=== PATIENT | female | born 1930 | race Caucasian/White ===

== ENCOUNTER 2016-12-30 01:05 | Inpatient (IN) | payer MEDICARE, OTHER ==
[~2016-12-30] VITALS: Ht 157.5 cm; Wt 72.9 kg
[2016-12-30] VITALS (14 sets, daily range): BP systolic 100–140; BP diastolic 56–80; PULSE 68–111; RESP 15–81; TEMP 98.3; Ht 157.5 cm; Wt 72.9 kg
[2016-12-30] MEDS ORDERED: SOD CHLORIDE 0.9% 1,000 ML IV STA (01:15)
[2016-12-30 01:26] LABS: BASOPHILS % 0.1 % (0.0-2.0); EOSINOPHILS # 0.1 10^3/ul (0.0-0.5); EOSINOPHILS % 1.1 % (0.0-7.0); HEMATOCRIT 33.1 % (37.0-47.0); HEMOGLOBIN 10.6 g/dl (12.0-16.0); LYMPHOCYTES # 1.2 10^3/ul (0.8-2.9); LYMPHOCYTES % 13.3 % (15.0-51.0); MEAN CORPUSCULAR HEMOGLOBIN 29.4 pg (29.0-33.0); MEAN CORPUSCULAR VOLUME 91.9 fl (82.0-101.0); MEAN PLATELET VOLUME 10.6 fl (7.4-10.4); MONOCYTE # 0.8 10^3/ul (0.3-0.9); MONOCYTES % 8.8 % (0.0-11.0); NEUTROPHILS % 75.8 % (39.0-77.0); PLATELET COUNT 162 10^3/UL (140-415); RED CELL DISTRIBUTION WIDTH 14.6 % (11.5-14.5)
[2016-12-30] MEDS ORDERED: AMIODARONE 150MG/D5W BOLUS 100 ML IV ONE (01:30)
[2016-12-30] MEDS ORDERED: AMIODARONE 900 MG in DEXTROSE 5% 482 ML IV SCH (01:30)
[2016-12-30 01:58] LABS: INR 0.95; PARTIAL THROMBOPLASTIN TIME 25.7 Sec (25.0-35.0); PROTIME 12.7 Sec (12.2-14.2)
[2016-12-30 02:03] LABS: ALBUMIN/GLOBULIN RATIO 1.11; BILIRUBIN,INDIRECT 0.8 mg/dl (0-1.1); BILIRUBIN,TOTAL 0.8 mg/dl (0.2-1.3); CALCIUM 8.4 mg/dl (8.4-10.2); CREATININE 0.73 mg/dl (0.44-1.00); POTASSIUM 4.1 mmol/L (3.5-5.1); TOTAL PROTEIN 5.7 g/dl (6.1-8.1)
[2016-12-30 02:27] LABS: TROPONIN-I 0.292 ng/ml (0.00-0.12)
--- NOTE | 2016-12-30 02:47 | RADRPT ---
PROCEDURE: XR Chest. CLINICAL INDICATION: Chest pain TECHNIQUE: AP Portable chest. COMPARISON: No pertinent prior examinations were submitted for comparison. FINDINGS: There is marked cardiomegaly. There is moderate pulmonary vascular congestion with some hazy opacit ies in the right greater than left lung bases. The osseous structures are unremarkable. IMPRESSION: Moderate pulmonary vascular congestion and basilar opacities likely due to pleural effusions and ate lectasis. RPTAT: HIKT .Hari Nava MD, MD Date Time Electronically viewed and signed by .Hari Nava MD, MD on 12/30/2016 02:46 .T/
--- NOTE | 2016-12-30 03:23 | ERA ---
ER Documentation Chief Complaint Date/Time DATE: 12/30/16 TIME: 03:20 Chief Complaint Per EMS pt c/o CP since noon, EMS gave 2 nitro sprays resolved cp HPI This is an 86 year female brought in by EMS with complaint of chest pain on and off since noon. Patient was recently admitted to [facility] for similar complaints and spent 8 days in a intermediate facility. Patient's chest pain is since resolved since getting 2 sprays of nitro and aspirin on route to the ER. No chest pain currently. No nausea no vomiting no fevers no chills. No diaphoresis. ROS All systems reviewed and are negative except as per history of present illness. Allergies Allergies: Coded Allergies: No Known Allergy (Unverified , 12/30/16) PMhx/Soc Hx Cardiac Disorders: Yes (NSTEMI, CHF, AFIB, Cardiomyopathy) Hx Psychiatric Problems: Yes (Depression) Hx Alcohol Use: No Hx Substance Use: No Hx Tobacco Use: No Smoking Status: Never smoker Physical Exam Vitals Vital Signs Date Time Temp Pulse Resp B/P Pulse Ox O2 Delivery O2 Flow Rate FiO2 12/30/16 03:09 98.3 72 18 116/69 98 Nasal Cannula 2.0 12/30/16 01:24 Nasal Cannula 2 12/30/16 01:11 98.6 124 16 132/86 97 Physical Exam Const: [] Head: Atraumatic Eyes: Normal Conjunctiva ENT: Normal External Ears, Nose and Mouth. Neck: Full range of motion..~ No meningismus. Resp: Clear to auscultation bilaterally Cardio: Regular rate and rhythm, no murmurs Abd: Soft, non tender, non distended. Normal bowel sounds Skin: No petechiae or rashes Back: No midline or flank tenderness Ext: No cyanosis, or edema Neur: Awake and alert Psych: Normal Mood and Affect Result Diagram: 12/30/16 0110 12/30/16 0110 Results 24 hrs Laboratory Tests Test 12/30/16 01:10 White Blood Count 9.010^3/ul Red Blood Count 3.6010^6/ul Hemoglobin 10.6g/dl Hematocrit 33.1% Mean Corpuscular Volume 91.9fl Mean Corpuscular Hemoglobin 29.4pg Mean Corpuscular Hemoglobin Concent 32.0g/dl Red Cell Distribution Width 14.6% Platelet Count 12874^3/UL Mean Platelet Volume 10.6fl Neutrophils % 75.8% Lymphocytes % 13.3% Monocytes % 8.8% Eosinophils % 1.1% Basophils % 0.1% Nucleated Red Blood Cells % 0.0/100WBC Neutrophils # (Manual) 6.910^3/ul Lymphocytes # 1.210^3/ul Monocytes # 0.810^3/ul Eosinophils # 0.110^3/ul Basophils # 0.010^3/ul Nucleated Red Blood Cells # 0.010^3/ul Prothrombin Time 12.7Sec Prothrombin Time Ratio 1.0 INR International Normalized Ratio 0.95 Activated Partial Thromboplast Time 25.7Sec Sodium Level 131mmol/L Potassium Level 4.1mmol/L Chloride Level 99mmol/L Carbon Dioxide Level 27mmol/L Anion Gap 9 Blood Urea Nitrogen 21mg/dl Creatinine 0.73mg/dl Glucose Level 123mg/dl Calcium Level 8.4mg/dl Total Bilirubin 0.8mg/dl Direct Bilirubin 0.00mg/dl Indirect Bilirubin 0.8mg/dl Aspartate Amino Transf (AST/SGOT) 35IU/L Alanine Aminotransferase (ALT/SGPT) 47IU/L Alkaline Phosphatase 70IU/L Troponin I 0.292ng/ml B-Type Natriuretic Peptide 4520PG/ML Total Protein 5.7g/dl Albumin 3.0g/dl Globulin 2.70g/dl Albumin/Globulin Ratio 1.11 Lipase 335U/L Current Medications Medications (Trade) Dose Ordered Sig/Vale Route PRN Reason Start Time Stop Time Status Last Admin Dose Admin Sodium Chloride 1,000 ml @ 1,000 mls/hr Q1H STAT IV 12/30/16 01:15 12/30/16 02:31 DC 12/30/16 01:37 Amiodarone HCl 100 ml @ 600 mls/hr ONCE ONCE IV 12/30/16 01:30 12/30/16 01:39 DC 12/30/16 01:36 Amiodarone HCl/ Dextrose (Cordarone Iv/ D5W) 500 ml @ 0 mls/hr Q0M IV 12/30/16 01:30 12/31/16 01:29 Procedures/MDM EKG: Rate/Rhythm: widecomplex tachycardia with variable conduction QRS, ST, T-waves: [No changes consistent w/ acute ischemia] Impression: [No evidence of ischemia or arrhythmia] At this point patient was treated as a wide-complex tachycardia and started on amiodarone infusion EKG: Rate/Rhythm: [Normal Sinus Rhythm] QRS, ST, T-waves: [No changes consistent w/ acute ischemia] Impression: [No evidence of ischemia or arrhythmia] Chest X-ray 1V Interpreted by me: Soft Tissue: No acute abnormalities Bones: No acute abnormalities Mediastinum/Cardiac Silhouette/Lungs: [No acute abnormalities] Critical Care: Time: 45 minutes Treatments/Evaluations: Close monitoring and treatment of unstable vital signs, cardiorespiratory, and neurologic status, while maintaining tight balance of fluid, respiratory, and cardiac interventions. Patient's symptoms are concerning for cardiac cause will require inpatient workup and continuous monitoring. Further w/u for ischemia, arrhythmia, PE or dissection will be deferred to the inpatient team. Accepting Care Team: Current data and ongoing care discussed. Time: 3:30 AM primary Provider: Hospitalist consulting: [XOXOXO] Outstanding Data: none Departure Diagnosis: Primary Impression: Chest pain Qualified Code: R07.9 - Chest pain, unspecified type Condition: Critical LUBNA YAN Dec 30, 2016 03:23
[2016-12-30] MEDS ORDERED: LORAZEPAM 2 MG INJ IV ONE (04:00)
[2016-12-30] MEDS ORDERED: morphine 2 MG INJ IV PRN (07:00)
[2016-12-30] MEDS ORDERED: ONDANSETRON 4 MG INJ IV PRN (07:00)
[2016-12-30] MEDS ORDERED: ACETAMINOPHEN 325 MG TAB PO PRN (07:00)
[2016-12-30] MEDS ORDERED: ATOR10TA65 PO (07:04)
[2016-12-30] MEDS ORDERED: MAGN400O4 PO (07:04)
[2016-12-30] MEDS ORDERED: ASPI325T4 PO (07:04)
[2016-12-30] MEDS ORDERED: BISA10SU75 PR (07:04)
--- NOTE | 2016-12-30 07:04 | HP ---
Date/Time of Note Date/Time of Note DATE: 12/30/16 TIME: 06:45 Assessment/Plan VTE Prophylaxis VTE Prophylaxis Intervention: heparin Lines/Catheters IV [facility]ter [facility]from [facility] Saline Lock Assessment/Plan Assessment/Plan Assessment 86-year-old female with a history of hypertension, A-fib, cardiomyopathy, CHF, GERD, NSTEMI and a probable dementia or CVA who was sent from SNF for chest pain and found to be in rapid A-fib with elevated troponin as well as CHF exacerbation PLAN Continue telemetry monitoring Trend troponin Supplemental oxygen, aspirin, beta-heriberto, statin, as needed nitro and morphine IV Lasix Monitor urine output 2D echo and cardiology consult HPI/ROS Admit Date/Time Admit Date/Time Dec 30, 2016 at 03:13 Hx of Present Illness This is an 86-year-old female with a history of hypertension, and STEMI, A. fib , CHF, GERD, depression who was brought from SNF/rehab for chest pain. Patient reportedly stated that she was having chest pain but on my examination patient is confused and is not oriented. In any case, reportedly she was admitted at an outside hospital for chest pain and sent back to SNF now sent for chest pain. When she presented to the ER she was noted to be in rapid A. fib. First troponin is elevated at 0.292. Chest x-ray shows moderate pulmonary vascular congestion, basilar opacity due to pleural effusion versus atelectasis. Patient has upper extremity bruising. . PMH/Family/Social Social History Smoking Status: Never smoker Exam/Review of Systems Vital Signs Vitals Vital Signs Date Time Temp Pulse Resp B/P Pulse Ox O2 Delivery O2 Flow Rate FiO2 12/30/16 05:15 97.6 81 81 140/80 99 12/30/16 04:16 Nasal Cannula 2.0 Exam Constitutional: other (No acute distress. Patient only mumbles and is not following commands) Head: atraumatic, normocephalic Eyes: PERRL Respiratory: diminished breath sounds Cardiovascular: irregular rhythm Gastrointestinal: soft Extremities: other (Upper extremity bruising) Labs Result Diagram: 12/30/16 0110 12/30/16 0110 Medications Medications Current Medications Amiodarone HCl/ Dextrose (Cordarone Iv/ D5W) 500 ml @ 0 mls/hr Q0M IV ; Start at 01:30; Stop 12/31/16 at 01:29 LUBNA SALMERON MD Dec 30, 2016 06:57
[2016-12-30] MEDS ORDERED: FUROSEMIDE 20 MG INJ IV SCH (09:00)
[2016-12-30] MEDS ORDERED: HEPARIN 5,000 UNIT/0.5 ML VIAL SC SCH (09:00)
[2016-12-30] MEDS: ASPIRIN (EC) 81 MG TAB PO SCH (09:47)
--- NOTE | 2016-12-30 10:21 | RADRPT ---
Echocardiogram Report Patient Name: JOSE BRIAN Gender: Female Date: 1930 Study Date: 30-Dec-2016 Creative Services Designer: Irvin Willson [facility] Location: 521 Ref. Physician: LUBNA SALMERON Quality: Good Procedures: Transthoracic echocardiogram with complete 2D, M-Mode, and doppler examination. Indications: NSTEMI. 2D/M Mode Doppler Measurement Value Normal Ranges Measurement Value Normal Ranges LVIDd 2D 4.8 3.5 - 5.6 cm DORINDA Vmax 1.5 cm2 LVIDs 2D 4.0 2.1 - 4.1 cm AV Peak Oli 1.2 m/sec FS 2D 16.4 % AV Peak PG 6.0 mmHg LVPWd 2D 1.1 0.6 - 1.1 cm AI Peak PG 53.0 mmHg IVSd 2D 1.3 0.6 - 1.1 cm AI Peak Oli 3.7 m/sec IVS/LVPW 2D 1.2 AI PHT 410.0 msec AoR Diam 2D 2.6 2.0 - 3.7 cm LVOT Peak Oli 0.7 m/sec LA/Ao 2D 2 0 - 1 LVOT Peak PG 2.0 mmHg EDV 2D 111.0 cm3 MV E Peak Oli 0.9 m/sec ESV 2D 65.0 cm3 MV Decel Time 151 msec LA Dimen 2D 5.1 2.3 - 4.0 cm TR Peak Oli 4.2 m/sec LVOT Diam 1.8 cm TR Peak PG 71.0 mmHg LVOT Area 2.5 cm2 RVSP 86.0 mmHg Findings Left Ventricle: Normal left ventricular cavity size. Moderate concentric left ventricular hypertrophy. Mild left ventricular systolic dysfunction. Ejection fraction is visually estimated at 40 %. Abnormal Diastolic Function. These segments of the LV are hypokinetic apical septum, inferior apex segment and apex. Right Ventricle: Normal right ventricular size. Normal right ventricular systolic function. Left Atrium: There is severe enlargement of left atrium. Right Atrium: There is severe enlargement of right atrium. Mitral Valve: Mitral valve leaflets appear mildly thickened. Mild mitral annular calcification. Moderate mitral valve regurgitation. Aortic Valve: No hemodynamically significant aortic stenosis by doppler. Aortic cusps appear mildly calcified. Mild aortic valve regurgitation. Tricuspid Valve: Estimated peak PA systolic pressure 86 mmHg. Tricuspid valve appears mildly thickened. There is severe tricuspid regurgitation. Pulmonic Valve: Normal pulmonic valve appearance. There is trace pulmonic regurgitation. Pericardium: Normal pericardium with no significant pericardial effusion. Aorta: Normal aortic root. IVC: Dilated IVC without respiratory collapse consistent with elevated right atrial pressure. Conclusions 1.Normal left ventricular cavity size. Moderate concentric left ventricular hypertrophy. Mild left ventricular systolic dysfunction. Ejection fraction is visually estimated at 40 %. Abnormal Diastolic Function. These segments of the LV are hypokinetic apical septum, inferior apex segment and apex. 2.Estimated peak PA systolic pressure 86 mmHg. Tricuspid valve appears mildly thickened. There is severe tricuspid regurgitation. 3.Mitral valve leaflets appear mildly thickened. Mild mitral annular calcification. Moderate mitral valve regurgitation. Electronically Signed By: Pk Gayle 30-Dec-2016 10:21:10 -0700 Patient Name: JOSE BRIAN Study Date: 30-Dec-2016 [id number]
[2016-12-30] MEDS ORDERED: ISOS30TA5 PO (10:54)
[2016-12-30] MEDS ORDERED: FURO40TA4 PO (10:54)
[2016-12-30] MEDS ORDERED: CARV6.2579 PO (10:54)
[2016-12-30] MEDS ORDERED: LEVA0.634 INHALATION (11:22)
[2016-12-30] MEDS ORDERED: SPIR25TA PO (11:22)
[2016-12-30] MEDS ORDERED: NIT4 SL (11:22)
[2016-12-30] MEDS ORDERED: LATA2.5D2 BOTH EYES (11:22)
[2016-12-30] MEDS ORDERED: SERT25TA83 PO (11:22)
[2016-12-30] MEDS ORDERED: LISI-313 PO (11:22)
[2016-12-30] MEDS ORDERED: PANT40TA4 PO (11:22)
[2016-12-30] MEDS ORDERED: SENN-53 PO (11:22)
[2016-12-30] MEDS ORDERED: IPRATROPIUM NEB (11:34)
--- NOTE | 2016-12-30 11:51 | CONS ---
DATE OF ADMISSION: 12/30/2016 DATE OF CONSULTATION: 12/30/2016 HISTORY OF PRESENT ILLNESS: Miss Hopkins is an 86-year-old woman who presented to [facility] with a complaint of fatigue, shortness of breath and chest pain. By EMS she was found to have atrial fibrillation with rapid ventricular rates. Her rates have been controlled on an amiodarone drip. She reportedly has a history of congestive heart failure and a non ST-elevation GA. She was sent by a alf facility. At this time patient appears alert. She reports that currently she has no chest pain. She also reports that she has had worsening edema for 1 week. PHYSICAL EXAMINATION: GENERAL APPEARANCE: She is comfortable but weak appearing. VITAL SIGNS: Temperature 98, pulse 86, blood pressure 123/70, oxygen saturation 98 percent on 2 L. LUNGS: There is bilateral crackles at the bases. HEART: Soft systolic murmur and irregular rhythm appreciated. ABDOMEN: Soft, nontender. EXTREMITIES: Reveal 2+ edema bilaterally. LABORATORY: Telemetry shows atrial fibrillation with controlled rate. EKG shows atrial fibrillation with a left bundle branch block. Initial troponin 0.92, second troponin 1.6, sodium 131, potassium 4.1. INR 1.0. Hematocrit 33.1. MEDICATION: Subcu heparin, aspirin, Lasix 20 IV daily, morphine and amiodarone drip, carvedilol 3.125 b.i.d. IMPRESSION AND PLAN: Miss Hopkins has atrial fibrillation initially with rapid ventricular rate and associated chest pain. No other hospital visits are available and so I cannot assess whether this is new. She also has congestive heart failure on examination and x-ray, mildly reduced ejection fraction on echocardiogram. At this time I agree with continued diuresis. I will order Lovenox until we ascertain whether she needs to be anticoagulated. She also has a slight elevation in troponin which is likely secondary to heart failure and atrial fibrillation with rapid rates. I will stop the amiodarone at this time. It is not clear whether the atrial fibrillation is new and her rates are controlled. Dr. Phillip will follow tomorrow. Dictated By: Pk Gayle MD /vangie/keagan /Document#: [id number]
--- NOTE | 2016-12-30 12:18 | QN ---
Documentation Comment S: Patient was seen and evaluated this am at bedside. Please see H&P for further details. Since admission this am patient is still c/o SOB but denies any chest pain or dizziness. O: Temp 98, BP 123/70 HR 86 98% on 2 L. PHYSICAL EXAMINATION: GENERAL APPEARANCE: No acute distress but appears weak CVS: irregularly irregular rhythm, systolic murmur LUNGS: Equal air entry. bilateral crackles at the bases no wheezing ABDOMEN: Soft, nontender. EXTREMITIES: 2+ edema LE bilaterally. ECHO 1. Normal left ventricular cavity size. Moderate concentric left ventricular hypertrophy. Mild left ventricular systolic dysfunction. Ejection fraction is visually estimated at 40 %. Abnormal Diastolic Function. These segments of the LV are hypokinetic apical septum, inferior apex segment and apex. 2. Estimated peak PA systolic pressure 86 mmHg. Tricuspid valve appears mildly thickened. There is severe tricuspid regurgitation. 3. Mitral valve leaflets appear mildly thickened. Mild mitral annular calcification. Moderate mitral valve regurgitation. A/P 1. NSTEMI - Cardiology on board and recommendations appreciated - Troponin continues to trend up and currently on Lovenox full dose 2. Afib with RVR - Amiodarone discontinued since currently rate controlled - Lovenox was initiated due to unclear whether afib is new or chronic. 3. 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 - BNP 4520 - ECHO shows EF 40% with severe TR and pulm HTN 4. Pulmonary HTN - if SOB shows no improvement, will consult Pulm for assistance with management HANK WAHL MD Dec 30, 2016 12:18
[2016-12-30] MEDS ORDERED: ENOXAPARIN 100 MG/ML SYG SC SCH (21:00)
[2016-12-30] MEDS: ATORVASTATIN 20 MG TAB PO SCH (21:05)
[2016-12-30] MEDS: LORAZEPAM 0.5 MG TAB PO SCH (21:05)
[2016-12-30] MEDS: LATANOPROST 0.005% 2.5 ML OPH BOTH EYES SCH (21:06)
[2016-12-31] VITALS (11 sets, daily range): BP systolic 96–129; BP diastolic 53–71; PULSE 79–109; RESP 18–19
[2016-12-31 07:48] LABS: EOSINOPHILS # 0.1 10^3/ul (0.0-0.5); EOSINOPHILS % 2.3 % (0.0-7.0); HEMATOCRIT 30.7 % (37.0-47.0); HEMOGLOBIN 9.9 g/dl (12.0-16.0); LYMPHOCYTES # 0.9 10^3/ul (0.8-2.9); LYMPHOCYTES % 15.3 % (15.0-51.0); MEAN CORPUSCULAR HEMOGLOBIN 30.3 pg (29.0-33.0); MEAN CORPUSCULAR HGB CONC 32.2 g/dl (32.0-37.0); MEAN CORPUSCULAR VOLUME 93.9 fl (82.0-101.0); MEAN PLATELET VOLUME 10.2 fl (7.4-10.4); MONOCYTE # 0.8 10^3/ul (0.3-0.9); MONOCYTES % 12.7 % (0.0-11.0); PLATELET COUNT 140 10^3/UL (140-415); RED BLOOD COUNT 3.27 10^6/ul (4.20-5.40); RED CELL DISTRIBUTION WIDTH 14.6 % (11.5-14.5); WHITE BLOOD COUNT 6.1 10^3/ul (4.8-10.8)
[2016-12-31 07:54] LABS: POSITIVE DIFF @See below
[2016-12-31 08:19] LABS: ALBUMIN 2.9 g/dl (3.3-4.9); ALBUMIN/GLOBULIN RATIO 1.16; BILIRUBIN,INDIRECT 0.6 mg/dl (0-1.1); BILIRUBIN,TOTAL 0.6 mg/dl (0.2-1.3); CALCIUM 8.5 mg/dl (8.4-10.2); CHOL/HDL RATIO 2.4 RATIO; CREATININE 0.84 mg/dl (0.44-1.00); POTASSIUM 4.1 mmol/L (3.5-5.1); TOTAL PROTEIN 5.4 g/dl (6.1-8.1)
[2016-12-31 08:36] LABS: THYROID STIMULATING HORMONE 3.33 MIU/L (0.465-4.680)
--- NOTE | 2016-12-31 08:55 | CONS ---
Date/Time of Note Date/Time of Note DATE: 12/31/16 TIME: 08:48 Consult Date/Type/Reason Admit Date/Time Dec 30, 2016 at 03:13 Initial Consult Date Type of Consultation: CARDIOLOGY Subjective CARDIOLOGY F/U NOTE: D/W STAFF and son over the phone. rhythm was reviewed. pt remains in Afib. HR has been mostly elevated. according to son pt has chronic Afib and is on pradaxa at home. she denies any cp or pressure to me. she has sob. no bleeding. OBJECTIVE: Gen: elderly female in mild resp distress HEENT: NC. AT. Pupils are equal and round Neck no stridor. + JVD CV irregularly irregular. systolic murmur. pulm+ + rhonchi at base. GI obese soft NT ND. NO REBOUND or guarding EXT: + B/L LE edema. neuro: awake and alert. Ox2 Psych calm and pleasant. Derm no active bleeding ECHO: Conclusions 1. Normal left ventricular cavity size. Moderate concentric left ventricular hypertrophy. Mild left ventricular systolic dysfunction. Ejection fraction is visually estimated at 40 %. Abnormal Diastolic Function. These segments of the LV are hypokinetic apical septum, inferior apex segment and apex. 2. Estimated peak PA systolic pressure 86 mmHg. Tricuspid valve appears mildly thickened. There is severe tricuspid regurgitation. 3. Mitral valve leaflets appear mildly thickened. Mild mitral annular calcification. Moderate mitral valve regurgitation. Electronically Signed By: Pk Gayle 30-Dec-2016 10:21:10 -0700 Objective Vital Signs Date Time Temp Pulse Resp B/P Pulse Ox O2 Delivery O2 Flow Rate FiO2 12/31/16 08:10 109 12/31/16 07:01 98.0 18 129/65 98 12/30/16 21:39 2.0 12/30/16 04:40 Room Air Intake and Output 12/30/16 12/30/16 12/31/16 15:00 23:00 07:00 Intake Total 600 ml Output Total 600 ml Balance 0 ml Results/Medications Result Diagram: 12/31/16 0712/31/16718 Results 24 hrs Laboratory Tests Test 12/30/16 14:19 12/31/16 07:19 Troponin I 2.550 *H White Blood Count 6.1 # Red Blood Count 3.27 L Hemoglobin 9.9 L Hematocrit 30.7 L Mean Corpuscular Volume 93.9 Mean Corpuscular Hemoglobin 30.3 Mean Corpuscular Hemoglobin Concent 32.2 Red Cell Distribution Width 14.6 H Platelet Count 140 Mean Platelet Volume 10.2 Neutrophils % 69.0 Lymphocytes % 15.3 Monocytes % 12.7 H Eosinophils % 2.3 Basophils % 0.0 Nucleated Red Blood Cells % 0.0 Neutrophils # (Manual) 4.2 Lymphocytes # 0.9 Monocytes # 0.8 Eosinophils # 0.1 Basophils # 0.0 Nucleated Red Blood Cells # 0.0 Sodium Level 132 L Potassium Level 4.1 Chloride Level 99 Carbon Dioxide Level 32 H Anion Gap 5 L Blood Urea Nitrogen 20 Creatinine 0.84 Glucose Level 89 Hemoglobin A1c 6.4 H Calcium Level 8.5 Total Bilirubin 0.6 Direct Bilirubin 0.00 Indirect Bilirubin 0.6 Aspartate Amino Transf (AST/SGOT) 41 Alanine Aminotransferase (ALT/SGPT) 53 Alkaline Phosphatase 68 Total Protein 5.4 L Albumin 2.9 L Globulin 2.50 Albumin/Globulin Ratio 1.16 Triglycerides Level 51 Cholesterol Level 120 LDL Cholesterol, Calculated 60 HDL Cholesterol 50 Cholesterol/HDL Ratio 2.4 Thyroid Stimulating Hormone (TSH) 3.330 Medications Current Medications Ondansetron HCl (Zofran Inj) 4 mg Q6H PRN IV NAUSEA AND/OR VOMITING; Start 12/30 at 07:00 Acetaminophen (Tylenol Tab) 650 mg Q6H PRN PO PAIN AND OR ELEVATED TEMP; Start 12/30/16 at 07:00 Morphine Sulfate (morphine) 2 mg Q4H PRN IV PAIN; Start 12/30/16 at 07:00 Carvedilol (Coreg) 3.125 mg BID PO Last administered on 12/30/16 21:05; Admin Dose 3.125 MG; Start 12/30/16 at 09:00 Aspirin (Halfprin) 81 mg DAILY PO Last administered on 12/30/16 09:47; Admin Dose 81 MG; Start 12/30/16 at 09:00 Atorvastatin Calcium (Lipitor) 20 mg HS PO Last administered on 12/30/16 21:05 ; Admin Dose 20 MG; Start 12/30/16 at 21:00 Furosemide (Lasix) 40 mg DAILY IV ; Start 12/31/16 at 09:00 Lorazepam (Ativan) 0.5 mg HS PO Last administered on 9/4/17at 21:05; Admin Dose 0.5 MG; Start 12/30/16 at 21:00 Latanoprost (Xalatan) 1 drop QHS BOTH EYES Last administered on 12/30/16t 21:06 ; Admin Dose 1 DROP; Start 12/30/16 at 21:00 Digoxin (Digoxin) 250 mcg ONCE ONCE IV ; Start 12/31/16 at 09:00; Stop 12/31/16 at 09:01 Losartan Potassium (Cozaar) 25 mg DAILY PO ; Start 12/31/16 at 09:00; Status UNV Spironolactone (Aldactone) 25 mg DAILY PO ; Start 12/31/16 at 09:00; Status UNV Apixaban (Eliquis) 5 mg BID PO ; Start 12/31/16 at 09:00; Status UNV Assessment/Plan Chief Complaint/Hosp Course 1. NSTEMI 2. AFIB: chronic now with RVR 3. HX severe CAD per son: per pt and son report 4 years ago she was told she has severe CAD, and CABG was recommended, she has refused and now continues to refuse. she does not even want gibran angio or PCI as d/w pt and son. 4. HTN 5. CHF: acute on chronic due to systolic and diastolic heart failure 6. anemia 7. dyslipidemia 8. CKD 9 Memory impairment 10. HYPO Na. REC: anticoagulation with eliquis cont coreg add losartan add aldactone IV lasix and adjust strict I/I AND Fall precautions. medical therapy only since she is refusing any intervention. f/u trop level. CHECK LIPID PANEL. STATINS. THANK YOU. NILDA HUNT MD [facility] Problems: NILDA HUNT MD Dec 31, 2016 08:55
[2016-12-31] MEDS ORDERED: DIGOXIN 500 MCG INJ IV ONE (09:00)
[2016-12-31 09:26] LABS: CK-MB 2.66 ng/ml (0.0-2.4); TROPONIN-I 0.995 ng/ml (0.00-0.12)
[2016-12-31] MEDS: LOSARTAN 25 MG TAB PO SCH (10:17)
[2016-12-31] MEDS: APIXABAN 5 MG TABLET PO SCH ×2 (10:18→21:17)
[2016-12-31] MEDS: ASPIRIN (EC) 81 MG TAB PO SCH (10:18)
[2016-12-31] MEDS: SPIRONOLACTONE 25 MG TAB PO SCH (10:18)
[2016-12-31] MEDS: FUROSEMIDE 20 MG INJ IV SCH (10:19)
--- NOTE | 2016-12-31 17:17 | PN ---
Date/Time of Note Date/Time of Note DATE: 12/31/16 TIME: 17:04 Assessment/Plan VTE Prophylaxis VTE Prophylaxis Intervention: other Lines/Catheters IV Catheter Type (from Nrs): Saline Lock Urinary Cath still in place: No Assessment/Plan Assessment/Plan 1. NSTEMI - Cardiology on board and recommendations appreciated. - Discussed with patient what Dr. Phillip discovered from son this am. Patient still adamant about not having surgery and kept stating "God has a plan for her... no surgery" - Will continue medical management at this time - Currently asymptomatic - Troponins trending downward 2. AFIB: chronic now with RVR - Currently rate controlled - On Eliquis, will need to monitor ecchymosis on left arm since on blood thinner 3. HX severe CAD per son - per pt and son report 4 years ago she was told she has severe CAD, and CABG was recommended. She continues to refuse surgical intervention. - Started on losartan and aldactone today and will monitor response to medication for another 24-48 hours before discharge 4. HTN - stable. continue current regimen 5. 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 anemia - stable 7. dyslipidemia - continue on statin 8. Hyponatremia. - will continue to monitor since on diuretics - no neurological symptoms appreciated 9. Prediabetes - A1c 6.4 Subjective 24 Hr Interval Summary Free Text/Dictation Patient seen and examined at bedside. States she is feeling better and no longer experiencing chest discomfort. Shortness of breath is improving but she is concerned about the bruising on her left arm and swelling of her legs. Denies any dizziness, fevers, nausea, vomiting, abdominal issues, palpitations, or LOC. Exam/Review of Systems Vital Signs Vitals Vital Signs Date Time Temp Pulse Resp B/P Pulse Ox O2 Delivery O2 Flow Rate FiO2 12/31/16 16:22 82 12/31/16 11:37 98.0 18 127/68 98 12/31/16 08:30 2.0 12/30/16 04:40 Room Air Intake and Output 12/30/16 12/30/16 12/31/16 15:00 23:00 07:00 Intake Total 600 ml Output Total 600 ml Balance 0 ml Exam General: elderly female, awake and alert HEENT: NC/AT. Pupils are equal and round Neck: no bruits. + JVD CV: irregularly irregular. systolic murmur. Pulm: crackles at bases. equal chest rise GI: Obese, soft NT ND. No rebound or guarding EXT: + B/L LE edema. neuro: awake and alert. Ox2 Psych calm and pleasant. Derm- swelling left UE with ecchymosis. pulses intact Results Result Diagram: 12/31/16 0712/31/16718 Results 24 hrs Laboratory Tests Test 12/31/16 07:16 12/31/16 07:19 Creatine Kinase 50 Creatine Kinase Index 5.3 Creatinine Kinase MB (Mass) 2.66 H Troponin I 0.995 *H White Blood Count 6.1 # Red Blood Count 3.27 L Hemoglobin 9.9 L Hematocrit 30.7 L Mean Corpuscular Volume 93.9 Mean Corpuscular Hemoglobin 30.3 Mean Corpuscular Hemoglobin Concent 32.2 Red Cell Distribution Width 14.6 H Platelet Count 140 Mean Platelet Volume 10.2 Neutrophils % 69.0 Lymphocytes % 15.3 Monocytes % 12.7 H Eosinophils % 2.3 Basophils % 0.0 Nucleated Red Blood Cells % 0.0 Neutrophils # (Manual) 4.2 Lymphocytes # 0.9 Monocytes # 0.8 Eosinophils # 0.1 Basophils # 0.0 Nucleated Red Blood Cells # 0.0 Sodium Level 132 L Potassium Level 4.1 Chloride Level 99 Carbon Dioxide Level 32 H Anion Gap 5 L Blood Urea Nitrogen 20 Creatinine 0.84 Glucose Level 89 Hemoglobin A1c 6.4 H Calcium Level 8.5 Total Bilirubin 0.6 Direct Bilirubin 0.00 Indirect Bilirubin 0.6 Aspartate Amino Transf (AST/SGOT) 41 Alanine Aminotransferase (ALT/SGPT) 53 Alkaline Phosphatase 68 Total Protein 5.4 L Albumin 2.9 L Globulin 2.50 Albumin/Globulin Ratio 1.16 Triglycerides Level 51 Cholesterol Level 120 LDL Cholesterol, Calculated 60 HDL Cholesterol 50 Cholesterol/HDL Ratio 2.4 Thyroid Stimulating Hormone (TSH) 3.330 Medications Medications Current Medications Ondansetron HCl (Zofran Inj) 4 mg Q6H PRN IV NAUSEA AND/OR VOMITING; Start 12/30 at 07:00 Acetaminophen (Tylenol Tab) 650 mg Q6H PRN PO PAIN AND OR ELEVATED TEMP; Start 12/30/16 at 07:00 Morphine Sulfate (morphine) 2 mg Q4H PRN IV PAIN; Start 12/30/16 at 07:00 Carvedilol (Coreg) 3.125 mg BID PO Last administered on 12/31/16 10:17; Admin Dose 3.125 MG; Start 12/30/16 at 09:00 Aspirin (Halfprin) 81 mg DAILY PO Last administered on 12/31/16 10:18; Admin Dose 81 MG; Start 12/30/16 at 09:00 Atorvastatin Calcium (Lipitor) 20 mg HS PO Last administered on 12/30/16 21:05 ; Admin Dose 20 MG; Start 12/30/16 at 21:00 Furosemide (Lasix) 40 mg DAILY IV Last administered on 12/31/16 10:19; Admin Dose 40 MG; Start 12/31/16 at 09:00 Lorazepam (Ativan) 0.5 mg HS PO Last administered on 12/30/16 21:05; Admin Dose 0.5 MG; Start 12/30/16 at 21:00 Latanoprost (Xalatan) 1 drop QHS BOTH EYES Last administered on 12/30/16 21:06 ; Admin Dose 1 DROP; Start 12/30/16 at 21:00 Losartan Potassium (Cozaar) 25 mg DAILY PO Last administered on 12/31/16 10:17 ; Admin Dose 25 MG; Start 12/31/16 at 09:00 Spironolactone (Aldactone) 25 mg DAILY PO Last administered on 12/31/16 10:18; Admin Dose 25 MG; Start 12/31/16 at 09:00 Apixaban (Eliquis) 5 mg BID PO Last administered on 12/31/16 10:18; Admin Dose 5 MG; Start 12/31/16 at 09:00 HANK WAHL MD Dec 31, 2016 17:16
[2016-12-31] MEDS: LATANOPROST 0.005% 2.5 ML OPH BOTH EYES SCH (21:16)
[2016-12-31] MEDS: LORAZEPAM 0.5 MG TAB PO SCH (21:16)
[2016-12-31] MEDS: ATORVASTATIN 20 MG TAB PO SCH (21:17)
[2017-01-01] VITALS (12 sets, daily range): BP systolic 100–120; BP diastolic 56–72; PULSE 71–83; RESP 17–19
[2017-01-01 07:45] LABS: BASOPHILS % 0.2 % (0.0-2.0); EOSINOPHILS # 0.1 10^3/ul (0.0-0.5); EOSINOPHILS % 2.3 % (0.0-7.0); HEMATOCRIT 31.7 % (37.0-47.0); HEMOGLOBIN 9.7 g/dl (12.0-16.0); LYMPHOCYTES # 0.9 10^3/ul (0.8-2.9); LYMPHOCYTES % 17.8 % (15.0-51.0); MEAN CORPUSCULAR HGB CONC 30.6 g/dl (32.0-37.0); MEAN CORPUSCULAR VOLUME 94.9 fl (82.0-101.0); MEAN PLATELET VOLUME 10.3 fl (7.4-10.4); MONOCYTE # 0.5 10^3/ul (0.3-0.9); MONOCYTES % 10.5 % (0.0-11.0); NEUTROPHILS % 68.4 % (39.0-77.0); PLATELET COUNT 149 10^3/UL (140-415); RED BLOOD COUNT 3.34 10^6/ul (4.20-5.40); RED CELL DISTRIBUTION WIDTH 14.9 % (11.5-14.5); WHITE BLOOD COUNT 4.8 10^3/ul (4.8-10.8)
[2017-01-01 08:12] LABS: ALBUMIN/GLOBULIN RATIO 1.15; BILIRUBIN,INDIRECT 0.6 mg/dl (0-1.1); BILIRUBIN,TOTAL 0.6 mg/dl (0.2-1.3); CALCIUM 8.6 mg/dl (8.4-10.2); CHOL/HDL RATIO 2.3 RATIO; CREATININE 0.81 mg/dl (0.44-1.00); POTASSIUM 4.5 mmol/L (3.5-5.1); TOTAL PROTEIN 5.6 g/dl (6.1-8.1)
[2017-01-01 08:17] LABS: CK-MB 1.17 ng/ml (0.0-2.4)
[2017-01-01 08:24] LABS: CREATINE KINASE < 20 IU/L (23-200); TROPONIN-I 0.555 ng/ml (0.00-0.12)
[2017-01-01] MEDS: SPIRONOLACTONE 25 MG TAB PO SCH (08:30)
[2017-01-01] MEDS: ASPIRIN (EC) 81 MG TAB PO SCH (08:30)
[2017-01-01] MEDS: LOSARTAN 25 MG TAB PO SCH (08:30)
[2017-01-01] MEDS: FUROSEMIDE 20 MG INJ IV SCH (08:31)
[2017-01-01] MEDS: APIXABAN 5 MG TABLET PO SCH ×2 (08:31→21:40)
[2017-01-01 09:09] LABS: THYROID STIMULATING HORMONE 3.07 MIU/L (0.465-4.680)
--- NOTE | 2017-01-01 09:52 | CONS ---
Date/Time of Note Date/Time of Note DATE: 01/01/17 TIME: 09:50 Consult Date/Type/Reason Admit Date/Time Dec 30, 2016 at 03:13 Type of Consultation: CARDIOLOGY Subjective CARDIOLOGY F/U NOTE: D/W STAFF and rhythm was reviewed. pt remains in Afib. HR has been mostly stable she denies any cp or pressure to me. she has increased sob. no bleeding. OBJECTIVE: Gen: elderly female in mild resp distress HEENT: NC. AT. Pupils are equal and round Neck no stridor. + JVD CV irregularly irregular. systolic murmur. pulm+ + rhonchi at base. GI obese soft NT ND. NO REBOUND or guarding EXT: + B/L LE edema. neuro: awake and alert. Ox2 Psych calm and pleasant. Derm no active bleeding ECHO: Conclusions 1. Normal left ventricular cavity size. Moderate concentric left ventricular hypertrophy. Mild left ventricular systolic dysfunction. Ejection fraction is visually estimated at 40 %. Abnormal Diastolic Function. These segments of the LV are hypokinetic apical septum, inferior apex segment and apex. 2. Estimated peak PA systolic pressure 86 mmHg. Tricuspid valve appears mildly thickened. There is severe tricuspid regurgitation. 3. Mitral valve leaflets appear mildly thickened. Mild mitral annular calcification. Moderate mitral valve regurgitation. Electronically Signed By: Pk Gayle 30-Dec-2016 10:21:10 -0700 Objective Vital Signs Date Time Temp Pulse Resp B/P Pulse Ox O2 Delivery O2 Flow Rate FiO2 01/01/17 08:32 98.2 75 18 109/69 99 12/31/16 23:53 Nasal Cannula 2.0 Intake and Output 12/31/16 12/31/16 01/01/17 15:00 23:00 07:00 Intake Total 700 ml 250 ml Output Total 800 ml 500 ml Balance -100 ml -250 ml Results/Medications Result Diagram: 01/01/17 0711 01/01/17 0711 Results 24 hrs Laboratory Tests Test 01/01/17 07:11 White Blood Count 4.8 # Red Blood Count 3.34 L Hemoglobin 9.7 L Hematocrit 31.7 L Mean Corpuscular Volume 94.9 Mean Corpuscular Hemoglobin 29.0 Mean Corpuscular Hemoglobin Concent 30.6 L Red Cell Distribution Width 14.9 H Platelet Count 149 Mean Platelet Volume 10.3 Neutrophils % 68.4 Lymphocytes % 17.8 Monocytes % 10.5 Eosinophils % 2.3 Basophils % 0.2 Nucleated Red Blood Cells % 0.0 Neutrophils # (Manual) 3.3 Lymphocytes # 0.9 Monocytes # 0.5 Eosinophils # 0.1 Basophils # 0.0 Nucleated Red Blood Cells # 0.0 Sodium Level 136 Potassium Level 4.5 Chloride Level 101 Carbon Dioxide Level 32 H Anion Gap 8 Blood Urea Nitrogen 21 H Creatinine 0.81 Glucose Level 114 Calcium Level 8.6 Magnesium Level 2.0 Total Bilirubin 0.6 Direct Bilirubin 0.00 Indirect Bilirubin 0.6 Aspartate Amino Transf (AST/SGOT) 34 Alanine Aminotransferase (ALT/SGPT) 49 Alkaline Phosphatase 68 Creatine Kinase < 20 L Creatine Kinase Index Creatinine Kinase MB (Mass) 1.17 Troponin I 0.555 *H Total Protein 5.6 L Albumin 3.0 L Globulin 2.60 Albumin/Globulin Ratio 1.15 Triglycerides Level 45 Cholesterol Level 124 LDL Cholesterol, Calculated 62 HDL Cholesterol 53 Cholesterol/HDL Ratio 2.3 Thyroid Stimulating Hormone (TSH) 3.070 Free Thyroxine 1.02 Medications Current Medications Ondansetron HCl (Zofran Inj) 4 mg Q6H PRN IV NAUSEA AND/OR VOMITING; Start 12/30 at 07:00 Acetaminophen (Tylenol Tab) 650 mg Q6H PRN PO PAIN AND OR ELEVATED TEMP; Start 12/30/16 at 07:00 Morphine Sulfate (morphine) 2 mg Q4H PRN IV PAIN; Start 12/30/16 at 07:00 Carvedilol (Coreg) 3.125 mg BID PO Last administered on 01/01/17 08:31; Admin Dose 3.125 MG; Start 12/30/16 at 09:00 Aspirin (Halfprin) 81 mg DAILY PO Last administered on 01/01/17 08:30; Admin Dose 81 MG; Start 12/30/16 at 09:00 Atorvastatin Calcium (Lipitor) 20 mg HS PO Last administered on 12/31/16 21:17 ; Admin Dose 20 MG; Start 12/30/16 at 21:00 Furosemide (Lasix) 40 mg DAILY IV Last administered on 01/01/17 08:31; Admin Dose 40 MG; Start 12/31/16 at 09:00 Lorazepam (Ativan) 0.5 mg HS PO Last administered on 12/31/16 21:16; Admin Dose 0.5 MG; Start 12/30/16 at 21:00 Latanoprost (Xalatan) 1 drop QHS BOTH EYES Last administered on 12/31/16 21:16 ; Admin Dose 1 DROP; Start 12/30/16 at 21:00 Losartan Potassium (Cozaar) 25 mg DAILY PO Last administered on 01/01/17 08:30 ; Admin Dose 25 MG; Start 12/31/16 at 09:00 Spironolactone (Aldactone) 25 mg DAILY PO Last administered on 01/01/17 08:30; Admin Dose 25 MG; Start 12/31/16 at 09:00 Apixaban (Eliquis) 5 mg BID PO Last administered on 01/01/17 08:31; Admin Dose 5 MG; Start 12/31/16 at 09:00 Assessment/Plan Chief Complaint/Hosp Course 1. NSTEMI 2. AFIB: chronic 3. HX severe CAD per son: per pt and son report 4 years ago she was told she has severe CAD, and CABG was recommended, she has refused and now continues to refuse. she does not even want gibran angio or PCI as d/w pt and son. 4. HTN 5. CHF: acute on chronic due to systolic and diastolic heart failure 6. anemia 7. dyslipidemia 8. CKD 9 Memory impairment 10. HYPO Na. REC: anticoagulation with eliquis cont coreg and losartan, and aldactone as tolerated. IV lasix / will give extra dose at 2 pm strict I/I AND Fall precautions. medical therapy only since she is refusing any intervention. f/u trop level. cont statin THANK YOU. NILDA HUNT MD [facility] Problems: NILDA HUNT MD Jan 01, 2017 09:52
--- NOTE | 2017-01-01 10:02 | PN ---
Date/Time of Note Date/Time of Note DATE: 01/01/17 TIME: 10:02 Assessment/Plan VTE Prophylaxis VTE Prophylaxis Intervention: other Lines/Catheters IV Catheter Type (from Nrs): Saline Lock Urinary Cath still in place: No Assessment/Plan Assessment/Plan 1. NSTEMI - Cardiology on board and recommendations appreciated. Extra dose of Lasix today due to SOB and diffuse edema - Patient still adamant about not having surgery for severe CAD - Will continue medical management at this time - Currently no c/o of chest pain - Troponins trending downward 2. AFIB: chronic now with RVR - Currently rate controlled - On Eliquis, will need to monitor ecchymosis on left arm since on blood thinner 3. HX severe CAD per son - per pt and son report 4 years ago she was told she has severe CAD, and CABG was recommended. She continues to refuse surgical intervention. - Started on losartan and aldactone today and will monitor response to medication 4. HTN - stable. continue current regimen 5. Acute on chronic due to systolic and diastolic heart failure - on ARB, lasix, and aldactone - better output today - extra dose of lasix this afternoon. will monitor electrolytes 6. anemia - stable 7. dyslipidemia - continue on statin 8. Hyponatremia- improved - most likely hypervolemic hyponatremia 9. Prediabetes - A1c 6.4 Subjective 24 Hr Interval Summary Free Text/Dictation Patient seen and examined this am. She was resting comfortably and easily arousable. Patient denies any shortness of breath, chest pain, palpitations, nausea, vomiting, or abdominal issues. She was requesting to use the bedside commode to urinate and looking for breakfast. Exam/Review of Systems Vital Signs Vitals Vital Signs Date Time Temp Pulse Resp B/P Pulse Ox O2 Delivery O2 Flow Rate FiO2 01/01/17 08:32 98.2 75 18 109/69 99 12/31/16 23:53 Nasal Cannula 2.0 Intake and Output 12/31/16 12/31/16 01/01/17 15:00 23:00 07:00 Intake Total 700 ml 250 ml Output Total 800 ml 500 ml Balance -100 ml -250 ml Exam General: elderly female HEENT: NC. AT. Pupils are equal and round Neck: no stridor. + JVD CV irregularly irregular. systolic murmur. Pulm: equal chest rise, + rhonchi at base. GI: obese, soft, nontender, nondistended. no rebound or guarding EXT: 2+ b/l LE edema. 1+ b/l UE edema Neuro: awake and alert. Ox2 Results Result Diagram: 01/01/17 0711 01/01/17 0711 Results 24 hrs Laboratory Tests Test 01/01/17 07:11 White Blood Count 4.8 # Red Blood Count 3.34 L Hemoglobin 9.7 L Hematocrit 31.7 L Mean Corpuscular Volume 94.9 Mean Corpuscular Hemoglobin 29.0 Mean Corpuscular Hemoglobin Concent 30.6 L Red Cell Distribution Width 14.9 H Platelet Count 149 Mean Platelet Volume 10.3 Neutrophils % 68.4 Lymphocytes % 17.8 Monocytes % 10.5 Eosinophils % 2.3 Basophils % 0.2 Nucleated Red Blood Cells % 0.0 Neutrophils # (Manual) 3.3 Lymphocytes # 0.9 Monocytes # 0.5 Eosinophils # 0.1 Basophils # 0.0 Nucleated Red Blood Cells # 0.0 Sodium Level 136 Potassium Level 4.5 Chloride Level 101 Carbon Dioxide Level 32 H Anion Gap 8 Blood Urea Nitrogen 21 H Creatinine 0.81 Glucose Level 114 Calcium Level 8.6 Magnesium Level 2.0 Total Bilirubin 0.6 Direct Bilirubin 0.00 Indirect Bilirubin 0.6 Aspartate Amino Transf (AST/SGOT) 34 Alanine Aminotransferase (ALT/SGPT) 49 Alkaline Phosphatase 68 Creatine Kinase < 20 L Creatine Kinase Index Creatinine Kinase MB (Mass) 1.17 Troponin I 0.555 *H Total Protein 5.6 L Albumin 3.0 L Globulin 2.60 Albumin/Globulin Ratio 1.15 Triglycerides Level 45 Cholesterol Level 124 LDL Cholesterol, Calculated 62 HDL Cholesterol 53 Cholesterol/HDL Ratio 2.3 Thyroid Stimulating Hormone (TSH) 3.070 Free Thyroxine 1.02 Medications Medications Current Medications Ondansetron HCl (Zofran Inj) 4 mg Q6H PRN IV NAUSEA AND/OR VOMITING; Start 12/30 at 07:00 Acetaminophen (Tylenol Tab) 650 mg Q6H PRN PO PAIN AND OR ELEVATED TEMP; Start 12/30/16 at 07:00 Morphine Sulfate (morphine) 2 mg Q4H PRN IV PAIN; Start 12/30/16 at 07:00 Carvedilol (Coreg) 3.125 mg BID PO Last administered on 9/6/17at 08:31; Admin Dose 3.125 MG; Start 12/30/16 at 09:00 Aspirin (Halfprin) 81 mg DAILY PO Last administered on 01/01/17 08:30; Admin Dose 81 MG; Start 12/30/16 at 09:00 Atorvastatin Calcium (Lipitor) 20 mg HS PO Last administered on 12/31/16 21:17 ; Admin Dose 20 MG; Start 12/30/16 at 21:00 Furosemide (Lasix) 40 mg DAILY IV Last administered on 01/01/17 08:31; Admin Dose 40 MG; Start 12/31/16 at 09:00 Lorazepam (Ativan) 0.5 mg HS PO Last administered on 12/31/16 21:16; Admin Dose 0.5 MG; Start 12/30/16 at 21:00 Latanoprost (Xalatan) 1 drop QHS BOTH EYES Last administered on 12/31/16 21:16 ; Admin Dose 1 DROP; Start 12/30/16 at 21:00 Losartan Potassium (Cozaar) 25 mg DAILY PO Last administered on 01/01/17 08:30 ; Admin Dose 25 MG; Start 12/31/16 at 09:00 Spironolactone (Aldactone) 25 mg DAILY PO Last administered on 01/01/17 08:30; Admin Dose 25 MG; Start 12/31/16 at 09:00 Apixaban (Eliquis) 5 mg BID PO Last administered on 01/01/17 08:31; Admin Dose 5 MG; Start 12/31/16 at 09:00 Furosemide (Lasix) 40 mg ONCE@14 IV ; Start 01/01/17 at 14:00; Stop 01/01/17 at 14 :01 HANK WAHL MD Jan 01, 2017 10:02
[2017-01-01] MEDS ORDERED: FUROSEMIDE 40 MG INJ IV SCH (14:00)
[2017-01-01] MEDS: LATANOPROST 0.005% 2.5 ML OPH BOTH EYES SCH (21:40)
[2017-01-01] MEDS: LORAZEPAM 0.5 MG TAB PO SCH (21:40)
[2017-01-01] MEDS: ATORVASTATIN 20 MG TAB PO SCH (21:40)
[2017-01-02] VITALS (12 sets, daily range): BP systolic 101–121; BP diastolic 54–73; PULSE 72–85; RESP 16–18
[2017-01-02 07:19] LABS: BASOPHILS % 0.2 % (0.0-2.0); EOSINOPHILS # 0.2 10^3/ul (0.0-0.5); HEMATOCRIT 31.6 % (37.0-47.0); HEMOGLOBIN 10.2 g/dl (12.0-16.0); LYMPHOCYTES # 1.1 10^3/ul (0.8-2.9); LYMPHOCYTES % 20.7 % (15.0-51.0); MEAN CORPUSCULAR HEMOGLOBIN 30.1 pg (29.0-33.0); MEAN CORPUSCULAR HGB CONC 32.3 g/dl (32.0-37.0); MEAN CORPUSCULAR VOLUME 93.2 fl (82.0-101.0); MEAN PLATELET VOLUME 9.9 fl (7.4-10.4); MONOCYTE # 0.5 10^3/ul (0.3-0.9); MONOCYTES % 10.5 % (0.0-11.0); PLATELET COUNT 153 10^3/UL (140-415); RED BLOOD COUNT 3.39 10^6/ul (4.20-5.40); RED CELL DISTRIBUTION WIDTH 14.8 % (11.5-14.5); WHITE BLOOD COUNT 5.1 10^3/ul (4.8-10.8)
[2017-01-02 07:45] LABS: ALBUMIN 2.8 g/dl (3.3-4.9); ALBUMIN/GLOBULIN RATIO 1.21; BILIRUBIN,INDIRECT 0.7 mg/dl (0-1.1); BILIRUBIN,TOTAL 0.7 mg/dl (0.2-1.3); CALCIUM 8.9 mg/dl (8.4-10.2); CREATININE 0.79 mg/dl (0.44-1.00); MAGNESIUM 1.8 mg/dl (1.7-2.5); POTASSIUM 4.1 mmol/L (3.5-5.1); TOTAL PROTEIN 5.1 g/dl (6.1-8.1)
[2017-01-02 07:50] LABS: CREATINE KINASE < 20 IU/L (23-200)
[2017-01-02 07:54] LABS: CK-MB 0.86 ng/ml (0.0-2.4)
--- NOTE | 2017-01-02 07:54 | CONS ---
Date/Time of Note Date/Time of Note DATE: 01/02/17 TIME: 07:53 Consult Date/Type/Reason Admit Date/Time Dec 30, 2016 at 03:13 Type of Consultation: CARDIOLOGY Subjective CARDIOLOGY F/U NOTE: D/W STAFF and rhythm was reviewed. pt remains in Afib. HR has been stable she denies any cp or pressure to me. she still has sob, slightly better though no bleeding. OBJECTIVE: Gen: elderly female in mild resp distress HEENT: NC. AT. Pupils are equal and round Neck no stridor. + JVD CV irregularly irregular. systolic murmur. pulm+ + rhonchi at base. GI obese soft NT ND. NO REBOUND or guarding EXT: + B/L LE edema. neuro: awake and alert. Ox2 Psych calm and pleasant. Derm no active bleeding ECHO: Conclusions 1. Normal left ventricular cavity size. Moderate concentric left ventricular hypertrophy. Mild left ventricular systolic dysfunction. Ejection fraction is visually estimated at 40 %. Abnormal Diastolic Function. These segments of the LV are hypokinetic apical septum, inferior apex segment and apex. 2. Estimated peak PA systolic pressure 86 mmHg. Tricuspid valve appears mildly thickened. There is severe tricuspid regurgitation. 3. Mitral valve leaflets appear mildly thickened. Mild mitral annular calcification. Moderate mitral valve regurgitation. Electronically Signed By: Pk Gayle 30-Dec-2016 10:21:10 -0700 Objective Vital Signs Date Time Temp Pulse Resp B/P Pulse Ox O2 Delivery O2 Flow Rate FiO2 01/02/17 04:36 85 01/02/17 04:20 98.9 18 121/60 97 01/01/17 08:20 Nasal Cannula 2.0 Intake and Output 01/01/17 01/01/17 01/02/17 15:00 23:00 07:00 Intake Total 650 ml 200 ml Output Total 1200 ml 500 ml Balance -550 ml -300 ml Results/Medications Result Diagram: 01/02/17 0638 01/02/17 0638 Results 24 hrs Laboratory Tests Test 01/02/17 06:38 White Blood Count 5.1 Red Blood Count 3.39 L Hemoglobin 10.2 L Hematocrit 31.6 L Mean Corpuscular Volume 93.2 Mean Corpuscular Hemoglobin 30.1 Mean Corpuscular Hemoglobin Concent 32.3 Red Cell Distribution Width 14.8 H Platelet Count 153 Mean Platelet Volume 9.9 Neutrophils % 65.0 Lymphocytes % 20.7 Monocytes % 10.5 Eosinophils % 3.0 Basophils % 0.2 Nucleated Red Blood Cells % 0.0 Neutrophils # (Manual) 3.3 Lymphocytes # 1.1 Monocytes # 0.5 Eosinophils # 0.2 Basophils # 0.0 Nucleated Red Blood Cells # 0.0 Sodium Level 134 L Potassium Level 4.1 Chloride Level 98 Carbon Dioxide Level 34 H Anion Gap 6 L Blood Urea Nitrogen 26 H Creatinine 0.79 Glucose Level 124 Calcium Level 8.9 Magnesium Level 1.8 Total Bilirubin 0.7 Direct Bilirubin 0.00 Indirect Bilirubin 0.7 Aspartate Amino Transf (AST/SGOT) 32 Alanine Aminotransferase (ALT/SGPT) 46 Alkaline Phosphatase 65 Creatine Kinase < 20 L Creatine Kinase Index Pending Creatinine Kinase MB (Mass) Pending Troponin I Pending B-Type Natriuretic Peptide 5230 H Total Protein 5.1 L Albumin 2.8 L Globulin 2.30 Albumin/Globulin Ratio 1.21 Medications Current Medications Ondansetron HCl (Zofran Inj) 4 mg Q6H PRN IV NAUSEA AND/OR VOMITING; Start 12/30 at 07:00 Acetaminophen (Tylenol Tab) 650 mg Q6H PRN PO PAIN AND OR ELEVATED TEMP; Start 12/30/16 at 07:00 Morphine Sulfate (morphine) 2 mg Q4H PRN IV PAIN; Start 12/30/16 at 07:00 Carvedilol (Coreg) 3.125 mg BID PO Last administered on 01/01/17 21:40; Admin Dose 3.125 MG; Start 12/30/16 at 09:00 Aspirin (Halfprin) 81 mg DAILY PO Last administered on 01/01/17 08:30; Admin Dose 81 MG; Start 12/30/16 at 09:00 Atorvastatin Calcium (Lipitor) 20 mg HS PO Last administered on 01/01/17 21:40 ; Admin Dose 20 MG; Start 12/30/16 at 21:00 Furosemide (Lasix) 40 mg DAILY IV Last administered on 01/01/17 08:31; Admin Dose 40 MG; Start 12/31/16 at 09:00 Lorazepam (Ativan) 0.5 mg HS PO Last administered on 01/01/17 21:40; Admin Dose 0.5 MG; Start 12/30/16 at 21:00 Latanoprost (Xalatan) 1 drop QHS BOTH EYES Last administered on 01/01/17 21:40 ; Admin Dose 1 DROP; Start 12/30/16 at 21:00 Losartan Potassium (Cozaar) 25 mg DAILY PO Last administered on 01/01/17 08:30 ; Admin Dose 25 MG; Start 12/31/16 at 09:00 Spironolactone (Aldactone) 25 mg DAILY PO Last administered on 01/01/17 08:30; Admin Dose 25 MG; Start 12/31/16 at 09:00 Apixaban (Eliquis) 5 mg BID PO Last administered on 01/01/17 21:40; Admin Dose 5 MG; Start 12/31/16 at 09:00 Assessment/Plan Chief Complaint/Hosp Course 1. NSTEMI 2. AFIB: chronic 3. HX severe CAD per son: per pt and son report 4 years ago she was told she has severe CAD, and CABG was recommended, she has refused and now continues to refuse. she does not even want gibran angio or PCI as d/w pt and son. 4. HTN 5. CHF: acute on chronic due to systolic and diastolic heart failure 6. anemia 7. dyslipidemia 8. CKD 9 Memory impairment 10. HYPO Na. REC: anticoagulation with eliquis cont coreg and losartan, and aldactone as tolerated. will start bumex drip today. adjust diuretics tomorrow again strict I/I AND Fall precautions. medical therapy only since she is refusing any intervention. cont statin THANK YOU. NILDA HUNT MD [facility] Problems: NILDA HUNT MD Jan 02, 2017 07:54
[2017-01-02 07:56] LABS: TROPONIN-I 0.452 ng/ml (0.00-0.12)
[2017-01-02] MEDS: SPIRONOLACTONE 25 MG TAB PO SCH (08:27)
[2017-01-02] MEDS: LOSARTAN 25 MG TAB PO SCH (08:29)
[2017-01-02] MEDS: APIXABAN 5 MG TABLET PO SCH ×2 (08:29→20:57)
[2017-01-02] MEDS: ASPIRIN (EC) 81 MG TAB PO SCH (08:30)
[2017-01-02] MEDS ORDERED: BUMETANIDE 6 MG in DEXTROSE 5% 36 ML IV ONE (10:00)
--- NOTE | 2017-01-02 15:31 | PN ---
Date/Time of Note Date/Time of Note DATE: 01/02/17 TIME: 15:25 Assessment/Plan VTE Prophylaxis VTE Prophylaxis Intervention: other Lines/Catheters IV Catheter Type (from [facility]): Saline Lock Urinary Cath still in place: No Assessment/Plan Assessment/Plan 1. 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 NSTEMI - Cardiology on board and recommendations appreciated. - Patient still adamant about not having surgery for severe CAD - Will continue medical management at this time - Currently no c/o of chest pain 3. AFIB: chronic now with RVR - Currently rate controlled - On Eliquisr 4. HX severe CAD per son - per pt and son report 4 years ago she was told she has severe CAD, and CABG was recommended. She continues to refuse surgical intervention. - will continue medical management 5. HTN - stable. continue current regimen 6. anemia - stable 7. dyslipidemia - continue on statin 8. Hyponatremia- stable - most likely hypervolemic hyponatremia 9. Prediabetes - A1c 6.4 Subjective 24 Hr Interval Summary Free Text/Dictation Patient seen and examined. Resting comfortably in bed. Still appears labored but admits to shortness of breath not being bothersome. Denies any chest pain, palpitations, nausea, vomiting, or abdominal issues. Upset about the ecchymosis of her arms from IV and blood draws but encouraged that they look to be resolving. Exam/Review of Systems Vital Signs Vitals Vital Signs Date Time Temp Pulse Resp B/P Pulse Ox O2 Delivery O2 Flow Rate FiO2 01/02/17 15:13 97.7 74 16 105/59 97 01/02/17 08:00 Nasal Cannula 2.0 Intake and Output 01/01/17 01/01/17 01/02/17 15:00 23:00 07:00 Intake Total 650 ml 200 ml Output Total 1200 ml 500 ml Balance -550 ml -300 ml Exam General: elderly female, mildly respiratory distress HEENT: NC. AT. Pupils are equal and round Neck: no stridor. + JVD CV irregularly irregular. systolic murmur. Pulm: equal chest rise, + rhonchi at base. GI: obese, soft, nontender, nondistended. no rebound or guarding EXT: 3+ b/l LE edema. b/l UE edema, R>L Neuro: awake and alert. Results Result Diagram: 01/02/17 0638 01/02/17 0638 Results 24 hrs Laboratory Tests Test 01/02/17 06:38 White Blood Count 5.1 Red Blood Count 3.39 L Hemoglobin 10.2 L Hematocrit 31.6 L Mean Corpuscular Volume 93.2 Mean Corpuscular Hemoglobin 30.1 Mean Corpuscular Hemoglobin Concent 32.3 Red Cell Distribution Width 14.8 H Platelet Count 153 Mean Platelet Volume 9.9 Neutrophils % 65.0 Lymphocytes % 20.7 Monocytes % 10.5 Eosinophils % 3.0 Basophils % 0.2 Nucleated Red Blood Cells % 0.0 Neutrophils # (Manual) 3.3 Lymphocytes # 1.1 Monocytes # 0.5 Eosinophils # 0.2 Basophils # 0.0 Nucleated Red Blood Cells # 0.0 Sodium Level 134 L Potassium Level 4.1 Chloride Level 98 Carbon Dioxide Level 34 H Anion Gap 6 L Blood Urea Nitrogen 26 H Creatinine 0.79 Glucose Level 124 Calcium Level 8.9 Magnesium Level 1.8 Total Bilirubin 0.7 Direct Bilirubin 0.00 Indirect Bilirubin 0.7 Aspartate Amino Transf (AST/SGOT) 32 Alanine Aminotransferase (ALT/SGPT) 46 Alkaline Phosphatase 65 Creatine Kinase < 20 L Creatine Kinase Index Creatinine Kinase MB (Mass) 0.86 Troponin I 0.452 *H B-Type Natriuretic Peptide 5230 H Total Protein 5.1 L Albumin 2.8 L Globulin 2.30 Albumin/Globulin Ratio 1.21 Medications Medications Current Medications Ondansetron HCl (Zofran Inj) 4 mg Q6H PRN IV NAUSEA AND/OR VOMITING; Start 12/30 at 07:00 Acetaminophen (Tylenol Tab) 650 mg Q6H PRN PO PAIN AND OR ELEVATED TEMP; Start 12/30/16 at 07:00 Morphine Sulfate (morphine) 2 mg Q4H PRN IV PAIN; Start 12/30/16 at 07:00 Carvedilol (Coreg) 3.125 mg BID PO Last administered on 01/02/17 08:29; Admin Dose 3.125 MG; Start 12/30/16 at 09:00 Aspirin (Halfprin) 81 mg DAILY PO Last administered on 01/02/17 08:30; Admin Dose 81 MG; Start 12/30/16 at 09:00 Atorvastatin Calcium (Lipitor) 20 mg HS PO Last administered on 01/01/17 21:40 ; Admin Dose 20 MG; Start 12/30/16 at 21:00 Lorazepam (Ativan) 0.5 mg HS PO Last administered on 01/01/17 21:40; Admin Dose 0.5 MG; Start 12/30/16 at 21:00 Latanoprost (Xalatan) 1 drop QHS BOTH EYES Last administered on 01/01/17 21:40 ; Admin Dose 1 DROP; Start 12/30/16 at 21:00 Losartan Potassium (Cozaar) 25 mg DAILY PO Last administered on 01/02/17 08:29 ; Admin Dose 25 MG; Start 12/31/16 at 09:00 Spironolactone (Aldactone) 25 mg DAILY PO Last administered on 01/02/17 08:27; Admin Dose 25 MG; Start 12/31/16 at 09:00 Apixaban (Eliquis) 5 mg BID PO Last administered on 01/02/17 08:29; Admin Dose 5 MG; Start 12/31/16 at 09:00 Furosemide 40 mg 40 mg DAILY IV ; Start 01/03/17 at 09:00 Bumetanide/ Dextrose (Bumex/D5W) 60 ml @ 10 mls/hr Q6H ONCE IV Last administered on 01/02/17 10:10; Admin Dose 10 MLS/HR; Start 01/02/17 at 10:00; Stop 01/02/17 at 15:59 HANK WAHL MD Jan 02, 2017 15:31
[2017-01-02] MEDS: ATORVASTATIN 20 MG TAB PO SCH (20:57)
[2017-01-02] MEDS: LORAZEPAM 0.5 MG TAB PO SCH (22:42)
[2017-01-02] MEDS: LATANOPROST 0.005% 2.5 ML OPH BOTH EYES SCH (22:42)
[2017-01-03] VITALS (12 sets, daily range): BP systolic 103–134; BP diastolic 55–74; PULSE 70–82; RESP 18
[2017-01-03 07:17] LABS: BASOPHILS % 0.2 % (0.0-2.0); EOSINOPHILS # 0.2 10^3/ul (0.0-0.5); EOSINOPHILS % 3.1 % (0.0-7.0); HEMATOCRIT 32.3 % (37.0-47.0); HEMOGLOBIN 10.3 g/dl (12.0-16.0); LYMPHOCYTES # 1.1 10^3/ul (0.8-2.9); LYMPHOCYTES % 22.2 % (15.0-51.0); MEAN CORPUSCULAR HEMOGLOBIN 30.1 pg (29.0-33.0); MEAN CORPUSCULAR HGB CONC 31.9 g/dl (32.0-37.0); MEAN CORPUSCULAR VOLUME 94.4 fl (82.0-101.0); MEAN PLATELET VOLUME 9.9 fl (7.4-10.4); MONOCYTE # 0.6 10^3/ul (0.3-0.9); MONOCYTES % 11.4 % (0.0-11.0); NEUTROPHILS % 62.5 % (39.0-77.0); PLATELET COUNT 166 10^3/UL (140-415); RED BLOOD COUNT 3.42 10^6/ul (4.20-5.40); RED CELL DISTRIBUTION WIDTH 15.2 % (11.5-14.5); WHITE BLOOD COUNT 4.9 10^3/ul (4.8-10.8)
[2017-01-03 08:17] LABS: ALBUMIN/GLOBULIN RATIO 1.15; BILIRUBIN,INDIRECT 0.7 mg/dl (0-1.1); BILIRUBIN,TOTAL 0.7 mg/dl (0.2-1.3); CALCIUM 8.7 mg/dl (8.4-10.2); CREATININE 0.86 mg/dl (0.44-1.00); MAGNESIUM 1.6 mg/dl (1.7-2.5); POTASSIUM 3.5 mmol/L (3.5-5.1); TOTAL PROTEIN 5.6 g/dl (6.1-8.1)
[2017-01-03] MEDS ORDERED: FUROSEMIDE 20 MG INJ IV SCH (09:00)
[2017-01-03] MEDS: ASPIRIN (EC) 81 MG TAB PO SCH (09:42)
[2017-01-03] MEDS: LOSARTAN 25 MG TAB PO SCH (09:42)
[2017-01-03] MEDS: APIXABAN 5 MG TABLET PO SCH ×2 (09:42→20:47)
[2017-01-03] MEDS: SPIRONOLACTONE 25 MG TAB PO SCH (09:42)
--- NOTE | 2017-01-03 10:45 | PN ---
Date/Time of Note Date/Time of Note DATE: 01/03/17 TIME: 10:43 Assessment/Plan VTE Prophylaxis VTE Prophylaxis Intervention: other Lines/Catheters [facility] Saline Lock Urinary Cath still in place: No Assessment/Plan Assessment/Plan 1. Acute on chronic due to systolic and diastolic heart failure - Still volume overloaded and on Bumex drip per Cardiology, - Will monitor I/O and daily weights, 1700cc total output last 2 days - on ARB, lasix, and aldactone - BNP 4220 - replacing electrolytes 2. NSTEMI - Cardiology on board and recommendations appreciated. - Patient still adamant about not having surgery for severe CAD - Will continue medical management at this time - Currently no c/o of chest pain 3. AFIB: chronic now with RVR - Currently rate controlled - On Eliquis 4. HX severe CAD per son - per pt and son report 4 years ago she was told she has severe CAD, and CABG was recommended. She continues to refuse surgical intervention. - will continue medical management 5. HTN - stable. continue current regimen 6. anemia - stable 7. dyslipidemia - continue on statin 8. Hyponatremia- improving - most likely hypervolemic hyponatremia 9. Prediabetes - A1c 6.4 10. hypomag - replaced Subjective 24 Hr Interval Summary Free Text/Dictation Patient seen and examined. Resting comfortably and denies any worsening shortness of breath, chest pain, nausea, vomiting, or abdominal issues. She has a good appetite and urinating often while on diuretics. Exam/Review of Systems Vital Signs Vitals Vital Signs Date Time Temp Pulse Resp B/P Pulse Ox O2 Delivery O2 Flow Rate FiO2 01/03/17 08:55 82 01/03/17 08:10 Nasal Cannula 2.0 01/03/17 07:17 98.5 18 125/69 96 Intake and Output 01/02/17 01/02/17 01/03/17 15:00 23:00 07:00 Intake Total 710 ml 100 ml Output Total 60 ml 850 ml 400 ml Balance -60 ml -140 ml -300 ml Exam General: elderly female, no acute distress HEENT: NC. AT. Pupils are equal and round Neck: no stridor. + JVD CV irregularly irregular. systolic murmur. Pulm: equal chest rise, +crackles at base. no wheezing. GI: obese, soft, nontender, nondistended. no rebound or guarding EXT: 1+ b/l LE edema, significantly improved. ecchymosis LUE-improving Neuro: awake and alert. Results Result Diagram: 01/03/17 0642 01/03/17 0642 Results 24 hrs Laboratory Tests Test 01/03/17 06:42 White Blood Count 4.9 Red Blood Count 3.42 L Hemoglobin 10.3 L Hematocrit 32.3 L Mean Corpuscular Volume 94.4 Mean Corpuscular Hemoglobin 30.1 Mean Corpuscular Hemoglobin Concent 31.9 L Red Cell Distribution Width 15.2 H Platelet Count 166 Mean Platelet Volume 9.9 Neutrophils % 62.5 Lymphocytes % 22.2 Monocytes % 11.4 H Eosinophils % 3.1 Basophils % 0.2 Nucleated Red Blood Cells % 0.0 Neutrophils # (Manual) 3.1 Lymphocytes # 1.1 Monocytes # 0.6 Eosinophils # 0.2 Basophils # 0.0 Nucleated Red Blood Cells # 0.0 Sodium Level 137 Potassium Level 3.5 Chloride Level 97 Carbon Dioxide Level 37 H Anion Gap 7 L Blood Urea Nitrogen 25 H Creatinine 0.86 Glucose Level 102 Calcium Level 8.7 Magnesium Level 1.6 L Total Bilirubin 0.7 Direct Bilirubin 0.00 Indirect Bilirubin 0.7 Aspartate Amino Transf (AST/SGOT) 28 Alanine Aminotransferase (ALT/SGPT) 43 Alkaline Phosphatase 73 B-Type Natriuretic Peptide 4270 H Total Protein 5.6 L Albumin 3.0 L Globulin 2.60 Albumin/Globulin Ratio 1.15 Medications Medications Current Medications Ondansetron HCl (Zofran Inj) 4 mg Q6H PRN IV NAUSEA AND/OR VOMITING; Start 12/30 at 07:00 Acetaminophen (Tylenol Tab) 650 mg Q6H PRN PO PAIN AND OR ELEVATED TEMP; Start 12/30/16 at 07:00 Morphine Sulfate (morphine) 2 mg Q4H PRN IV PAIN; Start 12/30/16 at 07:00 Carvedilol (Coreg) 3.125 mg BID PO Last administered on 01/03/17 09:42; Admin Dose 3.125 MG; Start 12/30/16 at 09:00 Aspirin (Halfprin) 81 mg DAILY PO Last administered on 01/03/17 09:42; Admin Dose 81 MG; Start 12/30/16 at 09:00 Atorvastatin Calcium (Lipitor) 20 mg HS PO Last administered on 01/02/17 20:57 ; Admin Dose 20 MG; Start 12/30/16 at 21:00 Lorazepam (Ativan) 0.5 mg HS PO Last administered on 01/02/17 22:42; Admin Dose 0.5 MG; Start 12/30/16 at 21:00 Latanoprost (Xalatan) 1 drop QHS BOTH EYES Last administered on 01/02/17 22:42 ; Admin Dose 1 DROP; Start 12/30/16 at 21:00 Losartan Potassium (Cozaar) 25 mg DAILY PO Last administered on 01/03/17 09:42 ; Admin Dose 25 MG; Start 12/31/16 at 09:00 Spironolactone (Aldactone) 25 mg DAILY PO Last administered on 01/03/17 09:42; Admin Dose 25 MG; Start 12/31/16 at 09:00 Apixaban (Eliquis) 5 mg BID PO Last administered on 01/03/17 09:42; Admin Dose 5 MG; Start 12/31/16 at 09:00 Furosemide (Lasix) 40 mg DAILY IV Last administered on 01/03/17 09:42; Admin Dose 40 MG; Start 01/03/17 at 09:00 HANK WAHL MD Jan 03, 2017 10:45
[2017-01-03] MEDS ORDERED: MAGNESIUM SULFATE 2 GM/50 ML 50 ML IVPB ONE (11:00)
[2017-01-03] MEDS ORDERED: POTASSIUM CHLORIDE (SR) 20 MEQ TAB PO STA (18:11)
--- NOTE | 2017-01-03 18:16 | CONS ---
Date/Time of Note Date/Time of Note DATE: 01/03/17 TIME: 18:14 Consult Date/Type/Reason Admit Date/Time Dec 30, 2016 at 03:13 Type of Consultation: CARDIOLOGY Subjective CARDIOLOGY F/U NOTE: D/W STAFF and rhythm was reviewed. pt remains in Afib. HR has been stable she denies any cp or pressure to me. Her sob has significantly improved now c/o nose bleeding. OBJECTIVE: Gen: elderly female in mild resp distress HEENT: NC. AT. Pupils are equal and round. + nose bleed on right side Neck no stridor. + JVD CV irregularly irregular. systolic murmur. pulm+ + rhonchi at base. GI obese soft NT ND. NO REBOUND or guarding EXT: + B/L LE edema. neuro: awake and alert. Ox2 Psych calm and pleasant. Derm no active bleeding ECHO: Conclusions 1. Normal left ventricular cavity size. Moderate concentric left ventricular hypertrophy. Mild left ventricular systolic dysfunction. Ejection fraction is visually estimated at 40 %. Abnormal Diastolic Function. These segments of the LV are hypokinetic apical septum, inferior apex segment and apex. 2. Estimated peak PA systolic pressure 86 mmHg. Tricuspid valve appears mildly thickened. There is severe tricuspid regurgitation. 3. Mitral valve leaflets appear mildly thickened. Mild mitral annular calcification. Moderate mitral valve regurgitation. Electronically Signed By: Pk Gayle 30-Dec-2016 10:21:10 -0700 Objective Vital Signs Date Time Temp Pulse Resp B/P Pulse Ox O2 Delivery O2 Flow Rate FiO2 01/03/17 16:41 70 01/03/17 15:41 98.1 18 134/74 95 01/03/17 08:10 Nasal Cannula 2.0 Intake and Output 01/02/17 01/02/17 01/03/17 15:00 23:00 07:00 Intake Total 710 ml 100 ml Output Total 60 ml 850 ml 400 ml Balance -60 ml -140 ml -300 ml Results/Medications Result Diagram: 01/03/17 0642 01/03/17 0642 Results 24 hrs Laboratory Tests Test 01/03/17 06:42 White Blood Count 4.9 Red Blood Count 3.42 L Hemoglobin 10.3 L Hematocrit 32.3 L Mean Corpuscular Volume 94.4 Mean Corpuscular Hemoglobin 30.1 Mean Corpuscular Hemoglobin Concent 31.9 L Red Cell Distribution Width 15.2 H Platelet Count 166 Mean Platelet Volume 9.9 Neutrophils % 62.5 Lymphocytes % 22.2 Monocytes % 11.4 H Eosinophils % 3.1 Basophils % 0.2 Nucleated Red Blood Cells % 0.0 Neutrophils # (Manual) 3.1 Lymphocytes # 1.1 Monocytes # 0.6 Eosinophils # 0.2 Basophils # 0.0 Nucleated Red Blood Cells # 0.0 Sodium Level 137 Potassium Level 3.5 Chloride Level 97 Carbon Dioxide Level 37 H Anion Gap 7 L Blood Urea Nitrogen 25 H Creatinine 0.86 Glucose Level 102 Calcium Level 8.7 Magnesium Level 1.6 L Total Bilirubin 0.7 Direct Bilirubin 0.00 Indirect Bilirubin 0.7 Aspartate Amino Transf (AST/SGOT) 28 Alanine Aminotransferase (ALT/SGPT) 43 Alkaline Phosphatase 73 B-Type Natriuretic Peptide 4270 H Total Protein 5.6 L Albumin 3.0 L Globulin 2.60 Albumin/Globulin Ratio 1.15 Medications Current Medications Ondansetron HCl (Zofran Inj) 4 mg Q6H PRN IV NAUSEA AND/OR VOMITING; Start 12/30 at 07:00 Acetaminophen (Tylenol Tab) 650 mg Q6H PRN PO PAIN AND OR ELEVATED TEMP; Start 12/30/16 at 07:00 Morphine Sulfate (morphine) 2 mg Q4H PRN IV PAIN; Start 12/30/16 at 07:00 Carvedilol (Coreg) 3.125 mg BID PO Last administered on 01/03/17 09:42; Admin Dose 3.125 MG; Start 12/30/16 at 09:00 Aspirin (Halfprin) 81 mg DAILY PO Last administered on 01/03/17 09:42; Admin Dose 81 MG; Start 12/30/16 at 09:00 Atorvastatin Calcium (Lipitor) 20 mg HS PO Last administered on 01/02/17 20:57 ; Admin Dose 20 MG; Start 12/30/16 at 21:00 Lorazepam (Ativan) 0.5 mg HS PO Last administered on 01/02/17 22:42; Admin Dose 0.5 MG; Start 12/30/16 at 21:00 Latanoprost (Xalatan) 1 drop QHS BOTH EYES Last administered on 01/02/17 22:42 ; Admin Dose 1 DROP; Start 12/30/16 at 21:00 Losartan Potassium (Cozaar) 25 mg DAILY PO Last administered on 01/03/17 09:42 ; Admin Dose 25 MG; Start 12/31/16 at 09:00 Spironolactone (Aldactone) 25 mg DAILY PO Last administered on 01/03/17 09:42; Admin Dose 25 MG; Start 12/31/16 at 09:00 Apixaban (Eliquis) 5 mg BID PO Last administered on 01/03/17 09:42; Admin Dose 5 MG; Start 12/31/16 at 09:00 Furosemide (Lasix) 40 mg DAILY IV Last administered on 01/03/17 09:42; Admin Dose 40 MG; Start 01/03/17 at 09:00 Assessment/Plan Chief Complaint/Hosp Course 1. NSTEMI 2. AFIB: chronic 3. HX severe CAD per son: per pt and son report 4 years ago she was told she has severe CAD, and CABG was recommended, she has refused and now continues to refuse. she does not even want gibran angio or PCI as d/w pt and son. 4. HTN 5. CHF: acute on chronic due to systolic and diastolic heart failure 6. anemia 7. dyslipidemia 8. CKD 9 Memory impairment 10. HYPO Na. REC: dec eliquis 2.5 bid due to nose bleed cont coreg and losartan, and aldactone as tolerated. will start bumex po bid for now and adjust prn strict I/I AND Fall precautions. medical therapy only since she is refusing any intervention. cont statin dc planning tomorrow? will replace K today THANK YOU. NILDA HUNT MD [facility] Problems: NILDA HUNT MD Jan 03, 2017 18:16
[2017-01-03] MEDS: ATORVASTATIN 20 MG TAB PO SCH (20:44)
[2017-01-03] MEDS: LORAZEPAM 0.5 MG TAB PO SCH (20:45)
[2017-01-03] MEDS: BUMETANIDE 1 MG TAB PO SCH (20:47)
[2017-01-03] MEDS: LATANOPROST 0.005% 2.5 ML OPH BOTH EYES SCH (21:19)
[2017-01-04] VITALS (12 sets, daily range): BP systolic 103–119; BP diastolic 55–63; PULSE 76–85; RESP 18–20
[2017-01-04] MEDS: BUMETANIDE 1 MG TAB PO SCH ×2 (05:07→17:25)
[2017-01-04 07:17] LABS: BASOPHILS % 0.2 % (0.0-2.0); EOSINOPHILS # 0.1 10^3/ul (0.0-0.5); EOSINOPHILS % 2.9 % (0.0-7.0); HEMATOCRIT 33.5 % (37.0-47.0); HEMOGLOBIN 10.7 g/dl (12.0-16.0); LYMPHOCYTES # 1.2 10^3/ul (0.8-2.9); LYMPHOCYTES % 25.2 % (15.0-51.0); MEAN CORPUSCULAR HGB CONC 31.9 g/dl (32.0-37.0); MEAN CORPUSCULAR VOLUME 93.8 fl (82.0-101.0); MEAN PLATELET VOLUME 10.1 fl (7.4-10.4); MONOCYTE # 0.6 10^3/ul (0.3-0.9); MONOCYTES % 11.3 % (0.0-11.0); NEUTROPHILS % 59.8 % (39.0-77.0); PLATELET COUNT 163 10^3/UL (140-415); RED BLOOD COUNT 3.57 10^6/ul (4.20-5.40); RED CELL DISTRIBUTION WIDTH 15.3 % (11.5-14.5); WHITE BLOOD COUNT 4.9 10^3/ul (4.8-10.8)
[2017-01-04 07:51] LABS: ALBUMIN/GLOBULIN RATIO 1.2; BILIRUBIN,INDIRECT 0.8 mg/dl (0-1.1); BILIRUBIN,TOTAL 0.8 mg/dl (0.2-1.3); CALCIUM 9.2 mg/dl (8.4-10.2); CREATININE 0.95 mg/dl (0.44-1.00); POTASSIUM 3.6 mmol/L (3.5-5.1); TOTAL PROTEIN 5.5 g/dl (6.1-8.1)
[2017-01-04 07:56] LABS: ALBUMIN 2.8 g/dl (3.3-4.9); CALCIUM 9.2 mg/dl (8.4-10.2); CREATININE 0.94 mg/dl (0.44-1.00); MAGNESIUM 1.8 mg/dl (1.7-2.5); PHOSPHORUS 3.6 mg/dl (2.5-4.9); POTASSIUM 3.8 mmol/L (3.5-5.1)
[2017-01-04] MEDS: ASPIRIN (EC) 81 MG TAB PO SCH (09:18)
[2017-01-04] MEDS: SPIRONOLACTONE 25 MG TAB PO SCH (09:18)
[2017-01-04] MEDS: LOSARTAN 25 MG TAB PO SCH (09:19)
[2017-01-04] MEDS: APIXABAN 5 MG TABLET PO SCH ×2 (09:20→20:23)
[2017-01-04] MEDS ORDERED: POTASSIUM CHLORIDE 250 ML IVPB ONE (09:30)
[2017-01-04 09:58] LABS: ALBUMIN 3.3 g/dl (3.3-4.9); ALBUMIN/GLOBULIN RATIO 1.17; BILIRUBIN,INDIRECT 1.1 mg/dl (0-1.1); BILIRUBIN,TOTAL 1.1 mg/dl (0.2-1.3); CALCIUM 9.5 mg/dl (8.4-10.2); CREATININE 0.89 mg/dl (0.44-1.00); POTASSIUM 3.7 mmol/L (3.5-5.1); TOTAL PROTEIN 6.1 g/dl (6.1-8.1)
--- NOTE | 2017-01-04 10:38 | PN ---
Date/Time of Note Date/Time of Note DATE: 01/04/17 TIME: 10:38 Assessment/Plan VTE Prophylaxis VTE Prophylaxis Intervention: SCD's Lines/Catheters [facility]from [facility] Saline Lock Urinary Cath still in place: No Assessment/Plan Assessment/Plan 1. NSTEMI 2. AFIB: chronic 3. HX severe CAD per son: per pt and son report 4 years ago she was told she has severe CAD, and CABG was recommended, she has refused and now continues to refuse. she does not even want gibran angio or PCI as d/w pt and son. 4. HTN 5. CHF: acute on chronic due to systolic and diastolic heart failure 6. anemia 7. dyslipidemia 8. CKD 9 Memory impairment 10. HYPO Na. REC: dec eliquis 2.5 bid due to nose bleed cont coreg and losartan, and aldactone as tolerated. will start bumex po bid for now and adjust prn strict I/I AND Fall precautions. medical therapy only since she is refusing any intervention. cont statin dc planning ok Subjective 24 Hr Interval Summary Free Text/Dictation the patient with no chest pain Exam/Review of Systems Vital Signs Vitals Vital Signs Date Time Temp Pulse Resp B/P Pulse Ox O2 Delivery O2 Flow Rate FiO2 01/04/17 08:00 77 01/04/17 07:10 97.8 19 119/63 98 01/03/17 20:00 Nasal Cannula 2.0 Intake and Output 01/03/17 01/03/17 01/04/17 15:00 23:00 07:00 Intake Total 120 ml Output Total 600 ml Balance -480 ml Results Result Diagram: 01/04/17 0616 01/04/17 0911 Results 24 hrs Laboratory Tests Test 01/04/17 06:16 01/04/17 09:11 White Blood Count 4.9 Red Blood Count 3.57 L Hemoglobin 10.7 L Hematocrit 33.5 L Mean Corpuscular Volume 93.8 Mean Corpuscular Hemoglobin 30.0 Mean Corpuscular Hemoglobin Concent 31.9 L Red Cell Distribution Width 15.3 H Platelet Count 163 Mean Platelet Volume 10.1 Neutrophils % 59.8 Lymphocytes % 25.2 Monocytes % 11.3 H Eosinophils % 2.9 Basophils % 0.2 Nucleated Red Blood Cells % 0.0 Neutrophils # (Manual) 2.9 Lymphocytes # 1.2 Monocytes # 0.6 Eosinophils # 0.1 Basophils # 0.0 Nucleated Red Blood Cells # 0.0 Sodium Level 137 136 Potassium Level 3.6 3.7 Chloride Level 94 L 93 L Carbon Dioxide Level 40 H 39 H Anion Gap 7 L 8 Blood Urea Nitrogen 24 H 23 H Creatinine 0.95 0.89 Glucose Level 95 114 Calcium Level 9.2 9.5 Phosphorus Level 3.6 Magnesium Level 1.8 Total Bilirubin 0.8 1.1 Direct Bilirubin 0.00 0.00 Indirect Bilirubin 0.8 1.1 Aspartate Amino Transf (AST/SGOT) 28 30 Alanine Aminotransferase (ALT/SGPT) 43 41 Alkaline Phosphatase 74 80 B-Type Natriuretic Peptide 3550 H Total Protein 5.5 L 6.1 Albumin 3.0 L 3.3 Globulin 2.50 2.80 Albumin/Globulin Ratio 1.20 1.17 Medications Medications Current Medications Ondansetron HCl (Zofran Inj) 4 mg Q6H PRN IV NAUSEA AND/OR VOMITING; Start 12/30 at 07:00 Acetaminophen (Tylenol Tab) 650 mg Q6H PRN PO PAIN AND OR ELEVATED TEMP; Start 12/30/16 at 07:00 Morphine Sulfate (morphine) 2 mg Q4H PRN IV PAIN; Start 12/30/16 at 07:00 Carvedilol (Coreg) 3.125 mg BID PO Last administered on 01/04/17 09:19; Admin Dose 3.125 MG; Start 12/30/16 at 09:00 Aspirin (Halfprin) 81 mg DAILY PO Last administered on 01/04/17 09:18; Admin Dose 81 MG; Start 12/30/16 at 09:00 Atorvastatin Calcium (Lipitor) 20 mg HS PO Last administered on 01/02/17 20:57 ; Admin Dose 20 MG; Start 12/30/16 at 21:00 Lorazepam (Ativan) 0.5 mg HS PO Last administered on 01/02/17 22:42; Admin Dose 0.5 MG; Start 12/30/16 at 21:00 Latanoprost (Xalatan) 1 drop QHS BOTH EYES Last administered on 01/03/17 21:19 ; Admin Dose 1 DROP; Start 12/30/16 at 21:00 Losartan Potassium (Cozaar) 25 mg DAILY PO Last administered on 01/04/17 09:19 ; Admin Dose 25 MG; Start 12/31/16 at 09:00 Spironolactone (Aldactone) 25 mg DAILY PO Last administered on 01/04/17 09:18; Admin Dose 25 MG; Start 12/31/16 at 09:00 Apixaban 2.5 mg 2.5 mg BID PO Last administered on 01/04/17 09:20; Admin Dose 2.5 MG; Start 01/03/17 at 21:00 Potassium Chloride (KCl 40 MEQ/250 ML NS) 250 ml @ 62.5 mls/hr ONCE ONCE IVPB Last administered on 01/04/17 09:27; Admin Dose 62.5 MLS/HR; Start 01/04/17 at 09:30; Stop 01/04/17 at 13:29 NUBIA MENDOZA MD Jan 04, 2017 10:38
[2017-01-04 12:42] LABS: Allen Test ACCEPTAB; Arterial Base Excess 13.2 mmol/L (-3.0-3); Arterial COHb 0.7 % (0.0-3.0); Arterial HCO3 38.7 mmol/L (22.0-26.0); Arterial MetHb 0.2 % (0.0-1.5); Arterial Total Hemglobin 12.1 g/dl (12.0-18.0); MODE ROOM AIR
--- NOTE | 2017-01-04 16:10 | PN ---
Date/Time of Note Date/Time of Note DATE: 01/04/17 TIME: 16:02 Assessment/Plan VTE Prophylaxis VTE Prophylaxis Intervention: other Lines/Catheters IV Catheter Type (from Nrsg): Peripheral IV Urinary Cath still in place: No Assessment/Plan Assessment/Plan 1. 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 Hypercarbia - on BMP CO2 was 40s but patient did not appear in any respiratory distress - ABG was performed on RA nd showed Co2 50s and O2 68. Placed back on 2L NC - May need O2 upon discharge 3. NSTEMI - Cardiology on board and recommendations appreciated. - Patient still adamant about not having surgery for severe CAD - Will continue medical management at this time - Currently no c/o of chest pain - okay to start discharge planning 4. AFIB: chronic now with RVR - Currently rate controlled - Eliquis on hold secondary to nose bleed 5. HX severe CAD per son - per pt and son report 4 years ago she was told she has severe CAD, and CABG was recommended. She continues to refuse surgical intervention. - will continue medical management 6. HTN - stable. continue current regimen 7. anemia - stable 8. dyslipidemia - continue on statin 9. Hyponatremia- resolved - most likely hypervolemic hyponatremia and improved with diuresis 10. Prediabetes - A1c 6.4 Subjective 24 Hr Interval Summary Free Text/Dictation Patient resting comfortably and in no acute distress. Does not appear to be labored this am. Spoke with son and discussed patients condition and plans for d/c back to [facility]. Denies any new complaints and no acute overnight events. Exam/Review of Systems Vital Signs Vitals Vital Signs Date Time Temp Pulse Resp B/P Pulse Ox O2 Delivery O2 Flow Rate FiO2 01/04/17 15:26 98.1 79 18 107/55 96 01/03/17 20:00 Nasal Cannula 2.0 Intake and Output 01/03/17 01/03/17 01/04/17 15:00 23:00 07:00 Intake Total 120 ml Output Total 600 ml Balance -480 ml Exam General: elderly female, no acute distress HEENT: NC. AT. Pupils are equal and round Neck: no stridor. CV irregularly irregular. systolic murmur. Pulm: equal chest rise, diminished breath sounds at base. no wheezing. GI: obese, soft, nontender, nondistended. no rebound or guarding EXT: 1+ b/l LE edema. ecchymosis LUE-improving Neuro: awake and alert. Results Result Diagram: 01/04/17 0616 01/04/17 0911 Results 24 hrs Laboratory Tests Test 01/04/17 06:16 01/04/17 09:11 01/04/17 10:15 White Blood Count 4.9 Red Blood Count 3.57 L Hemoglobin 10.7 L Hematocrit 33.5 L Mean Corpuscular Volume 93.8 Mean Corpuscular Hemoglobin 30.0 Mean Corpuscular Hemoglobin Concent 31.9 L Red Cell Distribution Width 15.3 H Platelet Count 163 Mean Platelet Volume 10.1 Neutrophils % 59.8 Lymphocytes % 25.2 Monocytes % 11.3 H Eosinophils % 2.9 Basophils % 0.2 Nucleated Red Blood Cells % 0.0 Neutrophils # (Manual) 2.9 Lymphocytes # 1.2 Monocytes # 0.6 Eosinophils # 0.1 Basophils # 0.0 Nucleated Red Blood Cells # 0.0 Sodium Level 137 136 Potassium Level 3.6 3.7 Chloride Level 94 L 93 L Carbon Dioxide Level 40 H 39 H Anion Gap 7 L 8 Blood Urea Nitrogen 24 H 23 H Creatinine 0.95 0.89 Glucose Level 95 114 Calcium Level 9.2 9.5 Phosphorus Level 3.6 Magnesium Level 1.8 Total Bilirubin 0.8 1.1 Direct Bilirubin 0.00 0.00 Indirect Bilirubin 0.8 1.1 Aspartate Amino Transf (AST/SGOT) 28 30 Alanine Aminotransferase (ALT/SGPT) 43 41 Alkaline Phosphatase 74 80 B-Type Natriuretic Peptide 3550 H Total Protein 5.5 L 6.1 Albumin 3.0 L 3.3 Globulin 2.50 2.80 Albumin/Globulin Ratio 1.20 1.17 Blood Gas Specimen Source Blood arterial Arterial Blood Date Drawn 01/04/2017 12:10:01 PM Arterial Blood pH (Temp corrected) 7.478 H Arterial Blood pCO2 (Temp correct) 53.4 H Arterial Blood pO2 (Temp corrected) 68.4 L Arterial Blood HCO3 38.7 H Arterial Blood Base Excess 13.2 H Arterial Blood Oxygen Saturation 93.8 L Gurpreet Test ACCEPTAB Arterial Blood Gas Puncture Site Right Radial Arterial Blood Carboxyhemoglobin 0.7 Arterial Blood Methemoglobin 0.2 Blood Gas A-a O2 Differential 228.0 H Oxyhemoglobin Percent 93.0 Total Hemoglobin 12.1 Blood Gas Temperature 37.0 Blood Gas Modality ROOM AIR FiO2 50.0 Blood Gas Notified Whom DT Blood Gas Notified Time 01/04/2017 12:42:10 PM Medications Medications Current Medications Ondansetron HCl (Zofran Inj) 4 mg Q6H PRN IV NAUSEA AND/OR VOMITING; Start 12/30 at 07:00 Acetaminophen (Tylenol Tab) 650 mg Q6H PRN PO PAIN AND OR ELEVATED TEMP; Start 12/30/16 at 07:00 Morphine Sulfate (morphine) 2 mg Q4H PRN IV PAIN; Start 12/30/16 at 07:00 Carvedilol (Coreg) 3.125 mg BID PO Last administered on 01/04/17 09:19; Admin Dose 3.125 MG; Start 12/30/16 at 09:00 Aspirin (Halfprin) 81 mg DAILY PO Last administered on 01/04/17 09:18; Admin Dose 81 MG; Start 12/30/16 at 09:00 Atorvastatin Calcium (Lipitor) 20 mg HS PO Last administered on 01/02/17 20:57 ; Admin Dose 20 MG; Start 12/30/16 at 21:00 Latanoprost (Xalatan) 1 drop QHS BOTH EYES Last administered on 01/03/17 21:19 ; Admin Dose 1 DROP; Start 12/30/16 at 21:00 Losartan Potassium (Cozaar) 25 mg DAILY PO Last administered on 01/04/17 09:19 ; Admin Dose 25 MG; Start 12/31/16 at 09:00 Spironolactone (Aldactone) 25 mg DAILY PO Last administered on 01/04/17 09:18; Admin Dose 25 MG; Start 12/31/16 at 09:00 Apixaban (Eliquis) 2.5 mg BID PO Last administered on 01/04/17 09:20; Admin Dose 2.5 MG; Start 01/03/17 at 21:00 HANK WAHL MD Jan 04, 2017 16:10
[2017-01-04] MEDS: ATORVASTATIN 20 MG TAB PO SCH (20:22)
[2017-01-04] MEDS: LATANOPROST 0.005% 2.5 ML OPH BOTH EYES SCH (20:22)
[2017-01-05] VITALS (9 sets, daily range): BP systolic 107–129; BP diastolic 57–72; PULSE 71–91; RESP 18–20
[2017-01-05 06:22] LABS: BASOPHILS % 0.4 % (0.0-2.0); EOSINOPHILS # 0.2 10^3/ul (0.0-0.5); EOSINOPHILS % 3.6 % (0.0-7.0); HEMATOCRIT 33.6 % (37.0-47.0); HEMOGLOBIN 10.4 g/dl (12.0-16.0); LYMPHOCYTES # 1.4 10^3/ul (0.8-2.9); LYMPHOCYTES % 29.6 % (15.0-51.0); MEAN CORPUSCULAR VOLUME 93.6 fl (82.0-101.0); MONOCYTE # 0.5 10^3/ul (0.3-0.9); MONOCYTES % 10.9 % (0.0-11.0); NEUTROPHILS % 54.9 % (39.0-77.0); PLATELET COUNT 150 10^3/UL (140-415); RED BLOOD COUNT 3.59 10^6/ul (4.20-5.40); RED CELL DISTRIBUTION WIDTH 15.6 % (11.5-14.5); WHITE BLOOD COUNT 4.7 10^3/ul (4.8-10.8)
[2017-01-05] MEDS: BUMETANIDE 1 MG TAB PO SCH (06:33)
[2017-01-05 06:39] LABS: ALBUMIN 2.8 g/dl (3.3-4.9); CALCIUM 9.1 mg/dl (8.4-10.2); CREATININE 0.83 mg/dl (0.44-1.00); MAGNESIUM 1.9 mg/dl (1.7-2.5); PHOSPHORUS 3.8 mg/dl (2.5-4.9); POTASSIUM 3.9 mmol/L (3.5-5.1)
[2017-01-05] MEDS: APIXABAN 5 MG TABLET PO SCH (09:46)
[2017-01-05] MEDS: LOSARTAN 25 MG TAB PO SCH (09:47)
[2017-01-05] MEDS: SPIRONOLACTONE 25 MG TAB PO SCH (09:47)
[2017-01-05] MEDS: ASPIRIN (EC) 81 MG TAB PO SCH (09:48)
--- NOTE | 2017-01-05 10:31 | PN ---
DATE: 01/05/2017 SUBJECTIVE: Patient reports feeling weak and fatigued. OBJECTIVE DATA: VITAL SIGNS: Temperature 95, blood pressure 116/57. NECK: No jugular venous distention. LUNGS: Clear. CARDIAC: Regular rate and rhythm with a soft systolic murmur. ABDOMEN: Soft. EXTREMITIES: No edema. LAB: Results reviewed. White count 4.7, hematocrit 33.6, sodium 136, potassium 3.9, BUN 24, creatinine 0.8. CURRENT MEDICATIONS: 1. Eliquis 2.5 b.i.d. 2. Bumex 1 mg b.i.d. p.o. 3. Losartan. 4. Spironolactone. 5. Lipitor. 6. Coreg 3.125. 7. Aspirin. ASSESSMENT: 1. Congestive heart failure and non ST elevation myocardial infarction. 2. Atrial fibrillation. 3. Evere coronary artery disease. 4. Anemia. PLAN: 1. The patient is on Eliquis for anticoagulation given her atrial fibrillation. 2. She has refused cardiac cath. She has previously been told that she has severe coronary disease and CABG was recommended at that time. 3. Congestive heart failure. Appears more euvolemic. Will continue on oral Bumex at this time. The patient will be followed by Dr. Phillip beginning tomorrow, January 06. Dictated By: Pk Gayle MD /vangie/maru /Document#: [id number]
--- NOTE | 2017-01-05 11:31 | PN ---
Date/Time of Note Date/Time of Note DATE: 01/05/17 TIME: 11:31 Assessment/Plan VTE Prophylaxis VTE Prophylaxis Intervention: other Lines/Catheters IV [facility]from [facility]): Peripheral IV Urinary Cath still in place: No Assessment/Plan Assessment/Plan 1. 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 Hypercarbia- improving 3. NSTEMI - Cardiology on board and recommendations appreciated. - Patient still adamant about not having surgery for severe CAD - Will continue medical management at this time - Currently no c/o of chest pain 4. AFIB: chronic now with RVR - Currently rate controlled - Eliquis on hold secondary to nose bleed - Will restart upon discharge 5. HX severe CAD per son - per pt and son report 4 years ago she was told she has severe CAD, and CABG was recommended. She continues to refuse surgical intervention. - will continue medical management 6. HTN - stable. continue current regimen 7. anemia - stable 8. dyslipidemia - continue on statin 9. Hyponatremia- resolved - most likely hypervolemic hyponatremia and improved with diuresis 10. Prediabetes - A1c 6.4 Subjective 24 Hr Interval Summary Free Text/Dictation patient doing well and not in respiratory distress. Denies any shortness of breath, chest pain, nausea, vomiting, or abdominal issues. Exam/Review of Systems Vital Signs Vitals Vital Signs Date Time Temp Pulse Resp B/P Pulse Ox O2 Delivery O2 Flow Rate FiO2 01/05/17 08:01 82 01/05/17 07:56 98.5 18 116/57 95 01/03/17 20:00 Nasal Cannula 2.0 Intake and Output 01/04/17 01/04/17 01/05/17 15:00 23:00 07:00 Intake Total 250 ml 800 ml 750 ml Balance 250 ml 800 ml 750 ml Exam General: elderly female, no acute distress HEENT: NC. AT. Pupils are equal and round Neck: no stridor. CV irregularly irregular. systolic murmur. Pulm: equal chest rise, diminished breath sounds at base. no wheezing. GI: obese, soft, nontender, nondistended. no rebound or guarding EXT: trace b/l LE edema. ecchymosis LUE-improving Neuro: awake and alert. Results Result Diagram: 01/05/17 0559 01/05/17 0559 Results 24 hrs Laboratory Tests Test 01/05/17 05:59 White Blood Count 4.7 L Red Blood Count 3.59 L Hemoglobin 10.4 L Hematocrit 33.6 L Mean Corpuscular Volume 93.6 Mean Corpuscular Hemoglobin 29.0 Mean Corpuscular Hemoglobin Concent 31.0 L Red Cell Distribution Width 15.6 H Platelet Count 150 Mean Platelet Volume 10.0 Neutrophils % 54.9 Lymphocytes % 29.6 Monocytes % 10.9 Eosinophils % 3.6 Basophils % 0.4 Nucleated Red Blood Cells % 0.0 Neutrophils # (Manual) 2.6 Lymphocytes # 1.4 Monocytes # 0.5 Eosinophils # 0.2 Basophils # 0.0 Nucleated Red Blood Cells # 0.0 Sodium Level 136 Potassium Level 3.9 Chloride Level 96 L Carbon Dioxide Level 37 H Anion Gap 7 L Blood Urea Nitrogen 24 H Creatinine 0.83 Glucose Level 91 Calcium Level 9.1 Phosphorus Level 3.8 Magnesium Level 1.9 Albumin 2.8 L Medications Medications Current Medications Ondansetron HCl (Zofran Inj) 4 mg Q6H PRN IV NAUSEA AND/OR VOMITING; Start 12/30 at 07:00 Acetaminophen (Tylenol Tab) 650 mg Q6H PRN PO PAIN AND OR ELEVATED TEMP; Start 12/30/16 at 07:00 Morphine Sulfate (morphine) 2 mg Q4H PRN IV PAIN; Start 12/30/16 at 07:00 Carvedilol (Coreg) 3.125 mg BID PO Last administered on 01/05/17 09:48; Admin Dose 3.125 MG; Start 12/30/16 at 09:00 Aspirin (Halfprin) 81 mg DAILY PO Last administered on 01/05/17 09:48; Admin Dose 81 MG; Start 12/30/16 at 09:00 Atorvastatin Calcium (Lipitor) 20 mg HS PO Last administered on 01/04/17 20:22 ; Admin Dose 20 MG; Start 12/30/16 at 21:00 Latanoprost (Xalatan) 1 drop QHS BOTH EYES Last administered on 01/04/17 20:22 ; Admin Dose 1 DROP; Start 12/30/16 at 21:00 Losartan Potassium (Cozaar) 25 mg DAILY PO Last administered on 01/05/17 09:47 ; Admin Dose 25 MG; Start 12/31/16 at 09:00 Spironolactone (Aldactone) 25 mg DAILY PO Last administered on 01/05/17 09:47 ; Admin Dose 25 MG; Start 12/31/16 at 09:00 Apixaban (Eliquis) 2.5 mg BID PO Last administered on 01/05/17 09:46; Admin Dose 2.5 MG; Start 01/03/17 at 21:00 HANK WAHL MD Jan 05, 2017 11:31
[2017-01-05] MEDS ORDERED: CARV3.1260 PO (13:09)
[2017-01-05] MEDS ORDERED: ASPI-664 PO (13:09)
[2017-01-05] MEDS ORDERED: BUME1TAB18 PO (13:09)
[2017-01-05] MEDS ORDERED: APIX5TAB PO (13:10)
--- NOTE | 2017-01-05 13:15 | PDOCDIS ---
Discharge Instructions DIAGNOSIS Discharge Diagnosis Non ST elevated myocardial infarction CONDITION Patient Condition: Good HOME CARE INSTRUCTIONS: Diet Instructions: 2gm NaSpecial Diet: 2 GM NA DIET. ACTIVITY: Activity Restrictions: Avoid heavy lifting FOLLOW UP/APPOINTMENTS Follow-up Plan 1. Continue taking all medications as prescribed 2. Follow up with PCP in 1-2 weeks 3. Follow up with Cardiology- if gaining weight or experiencing shortness of breath, call for medication recommendations 4. If experiencing shortness of breath, may need to use 2L Oxygen for relief. REFERRALS Other Referrals Claudy Phillip MD Specialty : Cardiology Office Address [id number] [place] [id number] Office Office [employer] HANK WAHL MD Jan 05, 2017 13:15
--- NOTE | 2017-01-06 10:33 | DS ---
Date/Time of Note Date/Time of Note DATE: 01/06/17 TIME: 09:33 Discharge Summary Admission/Discharge Info Admit Date/Time Dec 30, 2016 at 03:13 Discharge Date/Time Jan 05, 2017 at 16:[address] elevated myocardial infarction Patient Condition: Good Consults Dr. Phillip, Cardiology Hx of Present Illness This is an 86-year-old female with a history of hypertension, and STEMI, A. fib , CHF, GERD, depression who was brought from SNF/rehab for chest pain. Patient reportedly stated that she was having chest pain but on my examination patient is confused and is not oriented. In any case, reportedly she was admitted at an outside hospital for chest pain and sent back to SNF now sent for chest pain. When she presented to the ER she was noted to be in rapid A. fib. First troponin is elevated at 0.292. Chest x-ray shows moderate pulmonary vascular congestion, basilar opacity due to pleural effusion versus atelectasis. Patient has upper extremity bruising. . Hospital Course Patient was admitted to telemetry and Cardiology was consulted. She was found to have congestive heart failure on examination and x-ray,and mildly reduced ejection fraction on echocardiogram. ECHO results are as follows: ECHO: Normal left ventricular cavity size. Moderate concentric left ventricular hypertrophy. Mild left ventricular systolic dysfunction. Ejection fraction is visually estimated at 40 %. Abnormal Diastolic Function. These segments of the LV are hypokinetic apical septum, inferior apex segment and apex. Estimated peak PA systolic pressure 86 mmHg. Tricuspid valve appears mildly thickened. There is severe tricuspid regurgitation. Mitral valve leaflets appear mildly thickened. Mild mitral annular calcification. Moderate mitral valve regurgitation. Patient was diagnosed with NSTEMI but per discussion with patient and son, 4 years ago she was told she has severe CAD, and CABG was recommended, she has refused and now continues to refuse. she does not even want coronary angio or PCI as d/w pt and son. Medical management was optimized for her CAD, acute on chronic due to systolic and diastolic heart failure, and afib with RVR. She was started on Eliquis 2.5mg BID which was held prior to discharge due to nose bleed but restarted after discharge back to [facility]. She was continued on Coreg, Losartan, Aldactone, and Bumex. She will need to follow up with her PCP and Cardiology. Home Meds Active Scripts Apixaban* (Eliquis*) 5 Mg Tablet, 2.5 MG PO BID for 30 Days, #60 TAB take 2.5mg by mouth twice a day Prov:HANK WAHL MD 01/05/17 Bumetanide* (Bumetanide*) 1 Mg Tablet, 1 MG PO BID DIURETICS for 30 Days, #60 TAB Take one tablet twice a day by mouth Prov:HANK WAHL MD 01/05/17 Aspirin* (Aspirin* EC) 81 Mg Tablet.dr, 81 MG PO DAILY for 30 Days, #30 TAB take one tablet by mouth daily Prov:HANK WAHL MD 01/05/17 Carvedilol* (Carvedilol*) 3.125 Mg Tablet, 3.125 MG PO BID for 30 Days, #60 TAB take one tablet twice a day by mouth Prov:HANK WAHL MD 01/05/17 Reported Medications [Ipratropium] No Conflict Check, 0.5 MG NEB Q6 Y for SHORTNESS OF BREATH 12/30/16 Spironolactone* (Aldactone*) 25 Mg Tablet, 25 MG PO DAILY, #30 TAB 12/30/16 Sennosides* (Senna Lax*) 8.6 Mg Tablet, 1 TAB PO BID, TAB 12/30/16 Pantoprazole* (Pantoprazole*) 40 Mg Tablet.dr, 40 MG PO AC BREAKFAST, TAB 12/30/16 Nitroglycerin* (Nitrostat*) 0.4 Mg Tab.subl, 0.4 MG SL Q5MIN Y for CHEST PAIN, BOTTLE 12/30/16 Lisinopril* (Lisinopril*) 5 Mg Tablet, 5 MG PO DAILY, #30 TAB 12/30/16 Levalbuterol Hcl* (Levalbuterol Hcl*) 0.63 Mg/3 Ml Vial.neb, 0.63 MG INHALATION Q6H, VIAL 12/30/16 Latanoprost (Latanoprost) 2.5 Ml Drops, 1 DROP BOTH EYES QHS, #1 BOTTLE 12/30/16 Bisacodyl* (Bisacodyl*) 10 Mg Supp, 10 MG GA DAILY for CONSTIPATION, SUPP 12/30/16 Magnesium Hydroxide* (Milk Of Magnesia*) 400 Mg/5 Ml Oral.susp, 30 ML PO DAILY for CONSTIPATION, ML 12/30/16 Atorvastatin Calcium (Atorvastatin Calcium) 10 Mg Tablet, 20 MG PO QHS, #30 TAB 12/30/16 Discontinued Reported Medications Sertraline Hcl* (Sertraline Hcl*) 25 Mg Tablet, 25 MG PO DAILY, #30 TAB 12/30/16 Isosorbide Mononitrate* (Isosorbide Mononitrate*) 30 Mg Tab.er.24h, 15 MG PO DAILY, TAB 12/30/16 Furosemide* (Furosemide*) 40 Mg Tablet, 40 MG PO DAILY, TAB Hold for SBP <110 12/30/16 Carvedilol* (Carvedilol*) 6.25 Mg Tablet, 6.25 MG PO BID, #60 TAB Hold for SBP <110 or HR <60. 12/30/16 Aspirin* (Aspirin*) 325 Mg Tablet, 325 MG PO DAILY, TAB 12/30/16 Follow-up Plan Continue all medications as prescribed and instructed to limit sodium intake to 2 grams. Follow up with PCP and Cardiology. Primary Care Provider Not On Staff Doctor Time spent on discharge: > 30 minutes HANK WAHL MD Jan 06, 2017 09:54
== END 2017-01-05 16:35 | DRG 280 ==
LOC: E/R 01:05 → TEL 03:13
PROVIDERS: ADMIT Internal Medicine; ATTEND Internal Medicine
DX: I21.4 Non-ST elevation (NSTEMI) myocardial infarction (principal); I50.43 Acute on chronic combined systolic (congestive) and diastolic (congestive) heart failure; E87.1 Hypo-osmolality and hyponatremia; I27.2 Other secondary pulmonary hypertension; I48.91 Unspecified atrial fibrillation; I11.0 Hypertensive heart disease with heart failure; K21.9 Gastro-esophageal reflux disease without esophagitis; Z79.82 Long term (current) use of aspirin; I44.7 Left bundle-branch block, unspecified; I07.1 Rheumatic tricuspid insufficiency; Z79.01 Long term (current) use of anticoagulants; I25.10 Atherosclerotic heart disease of native coronary artery without angina pectoris; D64.9 Anemia, unspecified; E78.5 Hyperlipidemia, unspecified; I12.9 Hypertensive chronic kidney disease with stage 1 through stage 4 chronic kidney disease, or unspecified chronic kidney disease; N18.9 Chronic kidney disease, unspecified; R73.03 Prediabetes
CPT/HCPCS: 36415; 36600; 71010; 80053; 80061; 80069; 82550; 82553; 82803; 83036; 83690; 83735; 83880; 84439; 84443; 84484; 85025; 85610; 85730; 87081; 93005; 93306; 96374; 96375; J1940; J0282; J1644; J1650; J2060; J3475; J3480; J7030; J7060